=== PATIENT | female | born 1930 | race Caucasian/White ===

== ENCOUNTER 2016-06-28 13:58 | Emergency (ER) | payer OTHER ==
[~2016-06-28] VITALS: Ht 154.9 cm; Wt 42.0 kg
[~2016-06-28 13:58] MED LIST: ACET-1311 PO; RISP1SOL4 IM
[2016-06-28 14:11] VITALS: TEMP 36.5; Ht 154.9 cm; Wt 42.0 kg
[2016-06-28] MEDS ORDERED: CITA10TA4 PO (14:19)
[2016-06-28] MEDS ORDERED: [UNRECOGNIZED DRUG - CODE] IM (14:20)
[2016-06-28] MEDS ORDERED: GABA-112 PO (14:20)
--- NOTE | 2016-06-28 15:45 | EMERGENCY ROOM VISIT NOTE ---
History Report prepared by Ignacia: Dara Cochran Under the Supervision of: Dr. Billy Begum D.O. 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 Today, she told a member of [facility] staff that she was supposed to get 45 dollars from former Governor [employer] today which prompted the staff member to refer the patient to the ED. She also states that Sonali won [employer] which is untrue. Patient is adamant that she does not want any blood work. She states that she is not dehydrated, anemic, hypoglycemic. She states that because she ate a banana, her potassium cannot be low. The history obtained from the patient is limited due to her condition. 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 A total of 10 systems reviewed and were otherwise negative. Past Medical & Surgical Medical Problems: (1) Paranoid schizophrenia Family History Hypertension Social History Smoking Status: Unknown if Ever Smoked Marital Status: Housing Status: [facility] Occupation Status: retired Current/Historical Medications Scheduled Citalopram Hydrobromide (Citalopram Hydrobromide), 5 MG PO DAILY Gabapentin (Neurontin), 100 MG PO TID Risperidone (Risperdal Consta), 25 MG IM [id number] Allergies Coded Allergies: Hydrochlorothiazide (Verified Allergy, Unknown, UNKNOWN, 06/28/16) Penicillins (Verified Allergy, Unknown, UNKNOWN, 06/28/16) Physical Exam Vital Signs Date Time Temp Pulse Resp B/P Pulse Ox O2 Delivery O2 Flow Rate FiO2 06/28/16 15:54 92 18 155/96 94 Room Air 06/28/16 14:11 36.5 91 18 197/121 94 Room Air Physical Exam CONSTITUTIONAL/VITAL SIGNS: Reviewed / noted above. GENERAL: Non-toxic in appearance. INTEGUMENTARY: Warm, dry, and [place]. HEAD: Normocephalic. EYES: without scleral icterus or trauma. ENT/OROPHARYNX: clear and moist. LYMPHADENOPATHY/NECK: Is supple without lymphadenopathy or meningismus. RESPIRATORY: Lungs clear and equal. CARDIOVASCULAR: Regular rate and rhythm. GI/ABDOMEN: Soft and nontender. No organomegaly or pulsatile mass. No rebound or guarding. Normal bowel sounds. EXTREMITIES: Warm and well perfused. BACK: No CVA tenderness. NEUROLOGICAL: Intact without focal deficits. PSYCHIATRIC: Not suicidal or homicidal. Refusing blood work. MUSCULOSKELETAL: Normally developed with good muscle tone. Medical Decision & Procedures Laboratory Results 06/28/16 15:43 Red Blood Count 5.05, Mean Corpuscular Volume 64.4, Mean Corpuscular Hemoglobin 18.6, Mean Corpuscular Hemoglobin Concent 28.9, Mean Platelet Volume 9.3, Neutrophils (%) (Auto) 73.3, Lymphocytes (%) (Auto) 13.5, Monocytes (%) (Auto) 9.9, Eosinophils (%) (Auto) 2.9, Basophils (%) (Auto) 0.2, Neutrophils # (Auto) 6.74, Lymphocytes # (Auto) 1.24, Monocytes # (Auto) 0.91, Eosinophils # (Auto) 0.27, Basophils # (Auto) 0.02 06/28/16 15:43 Test 06/28/16 15:43 White Blood Count 9.20 K/uL (4.8-10.8) Red Blood Count 5.05 M/uL (4.2-5.4) Hemoglobin 9.4 g/dL (12.0-16.0) Hematocrit 32.5 % (37-47) Mean Corpuscular Volume 64.4 fL (80-100) Mean Corpuscular Hemoglobin 18.6 pg (25-34) Mean Corpuscular Hemoglobin Concent 28.9 g/dl (32-36) Platelet Count 563 K/uL (130-400) Mean Platelet Volume 9.3 fL (7.4-10.4) Neutrophils (%) (Auto) 73.3 % Lymphocytes (%) (Auto) 13.5 % Monocytes (%) (Auto) 9.9 % Eosinophils (%) (Auto) 2.9 % Basophils (%) (Auto) 0.2 % Neutrophils # (Auto) 6.74 K/uL (1.4-6.5) Lymphocytes # (Auto) 1.24 K/uL (1.2-3.4) Monocytes # (Auto) 0.91 K/uL (0.11-0.59) Eosinophils # (Auto) 0.27 K/uL (0-0.5) Basophils # (Auto) 0.02 K/uL (0-0.2) RDW Standard Deviation 46.5 fL (36.4-46.3) RDW Coefficient of Variation 20.1 % (11.5-14.5) Immature Granulocyte % (Auto) 0.2 % Immature Granulocyte # (Auto) 0.02 K/uL (0.00-0.02) Polychromasia 1+ Hypochromasia PRESENT Anisocytosis PRESENT Microcytosis PRESENT Ovalocytes 1+ Anion Gap 10.0 mmol/L (3-11) Est Creatinine Clear Calc Drug Dose 42.0 ml/min Estimated GFR () 93.8 Estimated GFR (Non- 81.0 BUN/Creatinine Ratio 22.9 (10-20) Calcium Level 9.1 mg/dl (8.5-10.1) Total Bilirubin 0.2 mg/dl (0.2-1) Aspartate Amino Transf (AST/SGOT) 9 U/L (15-37) Alanine Aminotransferase (ALT/SGPT) 10 U/L (12-78) Alkaline Phosphatase 107 U/L (45-117) Total Protein 7.2 gm/dl (6.4-8.2) Albumin 2.7 gm/dl (3.4-5.0) Globulin 4.5 gm/dl (2.5-4.0) Albumin/Globulin Ratio 0.6 (0.9-2) Thyroid Stimulating Hormone (TSH) 0.471 uIu/ml (0.300-4.500) Salicylates Level < 1.7 mg/dl (2.8-20) Acetaminophen Level < 2 ug/ml (10-30) Ethyl Alcohol mg/dL < 3.0 mg/dl (0-3) Laboratory results as stated above per my review. ED Course 1511: Previous medical records were reviewed. The patient was evaluated in room A6. A complete history and physical examination was performed. 1723: I reevaluated the patient. She is resting comfortably. I discussed the results and treatment plan with her. She expressed agreement and verbalized understanding. She will be discharged home. Medical Decision differential includes toxic ingestions, self-mutilation, suicidal ideation, suicide attempt, depression. This is a 86-year-old female who presents to the ED with a chief complaint of 302 evaluation. The patient was sent from the [facility]. She came in with a 302 petition stating that she has been aggressive towards other people and is not taking her medication. She has not been taking her blood pressure medication and thus her blood pressure on initial evaluation is elevated. The patient is awake, alert and oriented on my evaluation. She refuses to have her blood work done. She states that she [facility]. They will not reportedly take her back because she is not taking her psychiatric medications or her other medications. She denies being suicidal or homicidal. She has no specific complaints. The patient's blood work reveals some mild chronic anemia with a hemoglobin of 9.4. Complete metabolic panel was unremarkable. Thyroid function is normal. Alcohol is negative. Tylenol & salicylates are negative. After evaluation the patient, the patient does not appear to be suicidal or homicidal. She is of sound mind. She initially refused blood work but later agreed to this. She answers all questions appropriately. She may be refusing to take her medication although I do not feel this is related to an acute psychiatric issue. Impression Primary Impression: Noncompliance with medication regimen Scribe Attestation The scribe's documentation has been prepared under my direction and personally reviewed by me in its entirety. I confirm that the note above accurately reflects all work, treatment, procedures, and medical decision making performed by me. Departure Information Dispostion Home / Self-Care Referrals Wilton Villanueva .MD (PCP) Forms HOME CARE DOCUMENTATION FORM, IMPORTANT VISIT INFORMATION Patient Instructions My [facility] Additional Instructions Follow-up with your doctors. Return for any concerns.
[2016-06-28 16:24] LABS: BUN/CREATININE RATIO 22.9 (10-20); CALCIUM 9.1 mg/dl (8.5-10.1); CREATININE 0.65 mg/dl (0.60-1.20); POTASSIUM 3.7 mmol/L (3.5-5.1)
[2016-06-28 16:25] LABS: ACETAMINOPHEN < 2 ug/ml (10-30)
[2016-06-28 16:34] LABS: ALB/GLOB RATIO 0.6 (0.9-2); THYROID STIMULATING HORMONE 0.471 uIu/ml (0.300-4.500)
[2016-06-28 16:49] LABS: ANISOCYTOSIS PRESENT; BASO % 0.2 %; BASO ABS # 0.02 K/uL (0-0.2); COMPLETE YES; EOS % 2.9 %; HEMATOCRIT 32.5 % (37-47); HYPOCHROMIA PRESENT; IG% 0.2 %; LYMPH % 13.5 %; LYMPH ABS # 1.24 K/uL (1.2-3.4); MEAN CELL VOLUME 64.4 fL (80-100); MEAN CORPUSCULAR HEMOGLOBIN 18.6 pg (25-34); MEAN CORPUSCULAR HGB CONC 28.9 g/dl (32-36); MEAN PLATELET VOLUME 9.3 fL (7.4-10.4); MICROCYTOSIS PRESENT; MONO % 9.9 %; NEUT % 73.3 %; OVALOCYTES 1+; PLATELET COUNT 563 K/uL (130-400); POLYCHROMASIA 1+; RED BLOOD COUNT 5.05 M/uL (4.2-5.4)
[2016-06-28 17:35] VITALS: BP 143/89; PULSE 107; O2SAT 94
== END 2016-06-28 17:35 | disposition home or self-care (01) ==
LOC: EDBD 13:58 → C.EDA 13:59
DX: Z00.8 Encounter for other general examination (principal); Z91.14 Patient's other noncompliance with medication regimen; F20.0 Paranoid schizophrenia; Z79.899 Other long term (current) drug therapy; Z88.0 Allergy status to penicillin; Z88.8 Allergy status to other drugs, medicaments and biological substances; Z82.49 Family history of ischemic heart disease and other diseases of the circulatory system

== ENCOUNTER 2016-08-03 18:07 | Emergency (ER) | payer OTHER ==
[~2016-08-03 18:07] MED LIST changes: -ACET-1311 PO; +CITA10TA4 PO; +GABA-112 PO; -RISP1SOL4 IM; +[UNRECOGNIZED DRUG - CODE] IM
[2016-08-03 18:12] VITALS: TEMP 36.6; Ht 162.6 cm
--- NOTE | 2016-08-03 18:37 | EMERGENCY ROOM VISIT NOTE ---
History Report prepared by Ignacia: Christopher Dobbs Under the Supervision of: Dr. Adebayo Cruz M.D. First contact with patient: 18:22 Chief Complaint: MENTAL HEALTH EVALUATION Stated Complaint: NOT COOPERATIVE W/STAFF History of Present Illness The patient is an 86 year old female who presents to the Emergency Room from [facility] with complaints of persistent combativeness that started prior to arrival today. Per the nursing staff, the patient was 302'd because the patient is refusing medications, refusing personal hygiene, and is being combative. The patient was throwing things at staff and yelling at residents. She is congested and has a bad cough. Per the patient, she says she fell a few weeks ago and she hurt herself, but she did not hit her head. She says she has not been taking her medications because they make her feel terrible. She states that she has not been eating her food because the food "isn't any good". The patient denies any suicidal or homicidal ideations. She also denies a headache or fever. She does note that she has heartburn currently. The patient has not been using breathing treatments. Source of History: patient, long-term notes, nursing staff Onset: Prior to arrival today Position: other (global - combativeness) Quality: other (throwing things at staff, refusing medications) Timing: other (persistent) Associated Symptoms: + cough, No fevers, No headache Note: Associated symptoms: Congested. Heartburn. Denies suicidal or homicidal ideations. Review of Systems See HPI for pertinent positives & negatives. A total of 10 systems reviewed and were otherwise negative. Past Medical & Surgical Medical Problems: (1) Paranoid schizophrenia Old medical records were reviewed. Nurse's notes were reviewed and I agree with. COPD Family History Hypertension Social History Smoking Status: Former Smoker Marital Status: Housing Status: long-term Occupation Status: retired Current/Historical Medications Scheduled Citalopram Hydrobromide (Citalopram Hydrobromide), 5 MG PO DAILY Ferrous Sulfate (Kp Ferrous Sulfate), 325 MG PO DAILY Gabapentin (Neurontin), 100 MG PO Q12 Polyethylene Glycol 3350 (Miralax), 17 GM PO DAILY Risperidone (Risperdal Consta), 25 MG IM [id number] Allergies Coded Allergies: Hydrochlorothiazide (Verified Allergy, Unknown, UNKNOWN, 08/03/16) Penicillins (Verified Allergy, Unknown, UNKNOWN, 08/03/16) Physical Exam Vital Signs Date Time Temp Pulse Resp B/P Pulse Ox O2 Delivery O2 Flow Rate FiO2 08/03/16 21:00 104 18 144/94 94 Room Air 08/03/16 18:12 36.6 108 22 169/108 95 Room Air Physical Exam General: Well developed well nourished non ill appearing older female in no acute distress who is alert and oriented x3. Answers most questions appropriately but others very loudly. HEENT: Normal cephalic atraumatic. Pupils are equal round and reactive to light. Extraocular movements are intact. Oropharynx is pink with moist mucous membranes. No swelling of the mouth lips or tongue. Neck: Supple with a midline trachea. No meningeal signs or stiffness, no JVD or bruits. No Stridor. Chest: Clear to auscultation bilaterally. No wheezes or rhonchi. No increased work of breathing. Heart: regular rate and rhythm. Abdomen: Soft nontender, nondistended without rebound guarding or rigidity. Extremities: No cyanosis clubbing or edema. No calf tenderness or assymetry Spine/Back. Non tender to palpation. No CVA tenderness Skin: Good turgor without rashes. Neurologic exam: Cranial nerves two through 12 are intact. Motor and sensation are intact and symmetrical throughout. Psych: Intermittently yelling but normal thought process. Denies suicidal or homicidal ideations. Medical Decision & Procedures ER Provider Diagnostic Interpretation: X-ray results as stated below per interpretation by me and the radiologist: CHEST ONE VIEW PORTABLE CLINICAL HISTORY: Chest pain. COMPARISON STUDY: Chest radiograph June 08, 2015. FINDINGS: This exam was compromised due to difficulty with positioning. The patient is rotated with kyphotic positioning. There is no evidence of pulmonary edema. There is no lobar consolidation. Mild to moderate cardiomegaly is noted. No pneumothorax or pleural effusion is identified. IMPRESSION: Study compromised due to difficulty positioning. No significant change in appearance the chest. Stable cardiomegaly without evidence of pulmonary edema. Electronically signed by: Malik Hernandez M.D. 08/03/2016 6:53 PM Dictated Date/Time: 08/03/2016 6:52 PM Laboratory Results 08/03/16 19:36 Red Blood Count 5.20, Mean Corpuscular Volume 63.3, Mean Corpuscular Hemoglobin 18.3, Mean Corpuscular Hemoglobin Concent 28.9, Mean Platelet Volume 9.3, Neutrophils (%) (Auto) 82.4, Lymphocytes (%) (Auto) 5.1, Monocytes (%) (Auto) 11.6, Eosinophils (%) (Auto) 0.4, Basophils (%) (Auto) 0.1, Neutrophils # (Auto ) 10.79, Lymphocytes # (Auto) 0.67, Monocytes # (Auto) 1.52, Eosinophils # (Auto ) 0.05, Basophils # (Auto) 0.01 08/03/16 19:36 Test 08/03/16 19:36 White Blood Count 13.09 K/uL (4.8-10.8) Red Blood Count 5.20 M/uL (4.2-5.4) Hemoglobin 9.5 g/dL (12.0-16.0) Hematocrit 32.9 % (37-47) Mean Corpuscular Volume 63.3 fL (80-100) Mean Corpuscular Hemoglobin 18.3 pg (25-34) Mean Corpuscular Hemoglobin Concent 28.9 g/dl (32-36) Platelet Count 479 K/uL (130-400) Mean Platelet Volume 9.3 fL (7.4-10.4) Neutrophils (%) (Auto) 82.4 % Lymphocytes (%) (Auto) 5.1 % Monocytes (%) (Auto) 11.6 % Eosinophils (%) (Auto) 0.4 % Basophils (%) (Auto) 0.1 % Neutrophils # (Auto) 10.79 K/uL (1.4-6.5) Lymphocytes # (Auto) 0.67 K/uL (1.2-3.4) Monocytes # (Auto) 1.52 K/uL (0.11-0.59) Eosinophils # (Auto) 0.05 K/uL (0-0.5) Basophils # (Auto) 0.01 K/uL (0-0.2) RDW Standard Deviation 46.8 fL (36.4-46.3) RDW Coefficient of Variation 20.8 % (11.5-14.5) Immature Granulocyte % (Auto) 0.4 % Immature Granulocyte # (Auto) 0.05 K/uL (0.00-0.02) Polychromasia 1+ Hypochromasia PRESENT Poikilocytosis PRESENT Schistocytes OCCASIONAL Anion Gap 7.0 mmol/L (3-11) Estimated GFR () 96.9 Estimated GFR (Non- 83.6 BUN/Creatinine Ratio 24.4 (10-20) Calcium Level 8.1 mg/dl (8.5-10.1) Total Bilirubin 0.7 mg/dl (0.2-1) Direct Bilirubin 0.2 mg/dl (0-0.2) Aspartate Amino Transf (AST/SGOT) 13 U/L (15-37) Alanine Aminotransferase (ALT/SGPT) 10 U/L (12-78) Alkaline Phosphatase 161 U/L (45-117) Troponin I 0.016 ng/ml (0-0.045) Total Protein 6.8 gm/dl (6.4-8.2) Albumin 2.0 gm/dl (3.4-5.0) Lipase 77 U/L (73-393) Ethyl Alcohol mg/dL < 3.0 mg/dl (0-3) Laboratory studies as stated above per my review. ECG Indication: other (mental health evaluation) Rate (beats per minute): 87 Rhythm: normal sinus Findings: no acute ischemic change, other (poor baseline due to patient tremor , no prolonged QT) Change: no significant change (compared to Jun 08 2016) ED Course 1822: Past medical records reviewed. The patient was evaluated in room A8, and a complete history and physical examination were performed. 1911: I talked to the psychiatric binder caser, and she will come see the patient. 2012: I talked to the psychiatric binder caser, and she thinks that the patient is okay to go back to [facility] if the patient eats. The patient does not meet admission criteria. The patient denies any suicidal ideations, and she seems with it. 2029: Upon reevaluation, the patient is resting in bed and she ate soup. She wants to go home. I discussed the results and treatment plan with her. She verbalized agreement of the treatment plan. The patient will be discharge back to [facility]. Medical Decision Differentials include, but are not limited to; electrolyte or metabolic abnormality, cardiac disease, depression, psychiatric illness. This patient comes in as described above she was sent over under 302 petition from the long-term . they've been concerned about her behavior that has been combative at times .she's not been eating or taking her medication. She is very cooperative with me although intermittently does yell. She seems to answer questions appropriately. She fell a couple weeks ago but none recently she did not hit her head .she's had some cough and congestion at times. Multiple blood testing was obtained for medical clearance also did EKG and chest x-ray. She was reassessed frequently. She tells me that she has not been eating because she does not like the food. We fed her here and she ate soup and looks great. She is alert oriented 3 and answers questions appropriately. She is not suicidal or homicidal. I did a chest x-ray and there are no acute findings. EKG does not suggest acute cardiac disease. She has no significant electrolyte or metabolic abnormalities. Her troponin is normal does not suggest a cardiac event. I did have Christi our ER psychiatric binder caser also evaluate her and she does not feel she meets inpatient criteria at this point. She is going back to a safe setting in the long-term. The 302 petition is denied as she does not meet criteria at this point. She will be sent back to the long-term and should have close follow-up with her doctor within the next couple of days and return if any new problems or concerns. Impression Primary Impression: Schizoaffective disorder, chronic condition Additional Impression: Mental health problem Scribe Attestation The scribe's documentation has been prepared under my direction and personally reviewed by me in its entirety. I confirm that the note above accurately reflects all work, treatment, procedures, and medical decision making performed by me. Departure Information Dispostion Home / Self-Care Referrals Wilton Villanueva MD (PCP) Patient Instructions My [facility] Health Problem Qualifiers
--- NOTE | 2016-08-03 18:55 | DIAGNOSTIC IMAGING REPORT ---
CHEST ONE VIEW PORTABLE CLINICAL HISTORY: Chest pain. COMPARISON STUDY: Chest radiograph June 08, 2015. FINDINGS: This exam was compromised due to difficulty with positioning. The patient is rotated with kyphotic positioning. There is no evidence of pulmonary edema. There is no lobar consolidation. Mild to moderate cardiomegaly is noted. No pneumothorax or pleural effusion is identified. IMPRESSION: Study compromised due to difficulty positioning. No significant change in appearance the chest. Stable cardiomegaly without evidence of pulmonary edema. Electronically signed by: Malik Hernandez M.D. 08/03/2016 6:53 PM Dictated Date/Time: 08/03/2016 6:52 PM
[2016-08-03] MEDS ORDERED: POLY335019 PO (19:10)
[2016-08-03] MEDS ORDERED: FERR1TAB13 PO (19:10)
[2016-08-03 20:10] LABS: ALT/SGPT 10 U/L (12-78); AST/SGOT 13 U/L (15-37); BLOOD UREA NITROGEN 14 mg/dl (7-18); BUN/CREATININE RATIO 24.4 (10-20); CALCIUM 8.1 mg/dl (8.5-10.1); CARBON DIOXIDE 27 mmol/L (21-32); CHLORIDE 104 mmol/L (98-107); CREATININE 0.59 mg/dl (0.60-1.20); GLUCOSE 118 mg/dl (70-99); POTASSIUM 3.5 mmol/L (3.5-5.1); SODIUM 138 mmol/L (136-145)
[2016-08-03 20:13] LABS: ALKALINE PHOSPHATASE 161 U/L (45-117)
[2016-08-03 20:16] LABS: HEMATOCRIT 32.9 % (37-47); MEAN CELL VOLUME 63.3 fL (80-100); MEAN CORPUSCULAR HEMOGLOBIN 18.3 pg (25-34); MEAN CORPUSCULAR HGB CONC 28.9 g/dl (32-36); MEAN PLATELET VOLUME 9.3 fL (7.4-10.4); PLATELET COUNT 479 K/uL (130-400); WHITE BLOOD COUNT 13.09 K/uL (4.8-10.8)
[2016-08-03 20:19] LABS: BASO % 0.1 %; BASO ABS # 0.01 K/uL (0-0.2); COMPLETE YES; EOS % 0.4 %; HYPOCHROMIA PRESENT; IG% 0.4 %; LYMPH % 5.1 %; LYMPH ABS # 0.67 K/uL (1.2-3.4); MONO % 11.6 %; NEUT % 82.4 %; POIKILOCYTOSIS PRESENT; POLYCHROMASIA 1+; SCHISTOCYTES OCCASIONAL
[2016-08-03 22:01] VITALS: BP 127/86; PULSE 102; O2SAT 92
[2016-11-15] MEDS ORDERED: OLOP0.1S3 OPB (13:24)
== END 2016-08-03 22:01 | disposition home or self-care (01) ==
LOC: C.EDA 18:07 → EDBD 18:07 → C.EDA 22:01
DX: F25.9 Schizoaffective disorder, unspecified (principal); F20.0 Paranoid schizophrenia; Z87.891 Personal history of nicotine dependence

== ENCOUNTER 2016-11-15 11:44 | Inpatient (IN) | payer OTHER ==
[~2016-11-15] VITALS: Ht 162.6 cm; Wt 53.2 kg
[~2016-11-15 11:44] MED LIST changes: +FERR1TAB13 PO; +POLY335019 PO
--- NOTE | 2016-11-15 12:29 | EMERGENCY ROOM VISIT NOTE ---
History Report prepared by Ignacia: Ray Garcia Under the Supervision of: Dr. Andreas Gao M.D. First contact with patient: 12:10 Chief Complaint: MENTAL HEALTH EVALUATION Stated Complaint: REFUSING CARE/ HEARTHSIDE History of Present Illness The patient is an 86 year old female who presents to the Emergency Room for a mental health evaluation. The patient states that she has been refusing to take her medication. She reports that she is not in any pain, and her hand is always swollen. The patient notes that she is from [place] and would like to go to [place]. Records states that she was here in July and has as history of schizophrenia. HPI limited secondary to the patient refusing to answer questions. Source of History: patient, nursing staff History Limited By: poor cooperation Review of Systems ROS limited secondary to the patient refusing to answer questions. Past Medical & Surgical Medical Problems: (1) Change in mental status (2) Paranoid schizophrenia Family History Hypertension Social History Smoking Status: Current Every Day Smoker Marital Status: Housing Status: half-way Occupation Status: retired Current/Historical Medications Scheduled Citalopram Hydrobromide (Citalopram Hydrobromide), 5 MG PO DAILY Ferrous Sulfate (Kp Ferrous Sulfate), 325 MG PO DAILY Gabapentin (Neurontin), 100 MG PO Q12 Polyethylene Glycol 3350 (Miralax), 17 GM PO DAILY Risperidone (Risperdal Consta), 50 MG IM [id number] Scheduled PRN Bisacodyl (Bisacodyl), 10 MG [place] DAILY PRN for if no bm for 4 days Lorazepam (Lorazepam Intensol), 0.25 MG PO BID PRN for Agitation Magnesium Hydroxide (Milk Of Magnesia), 30 ML PO prn PRN for no bm for 3 days Olopatadine Hcl (Patanol 0.1% Oph), 1 DROP OPB BID PRN for Itching Miscellaneous Medications Risperidone (Risperdal Consta), 50 Allergies Coded Allergies: Hydrochlorothiazide (Verified Allergy, Unknown, UNKNOWN, 11/15/16) Penicillins (Verified Allergy, Unknown, UNKNOWN, 11/15/16) Physical Exam Vital Signs Date Time Temp Pulse Resp B/P (MAP) Pulse Ox O2 Delivery O2 Flow Rate FiO2 11/15/16 18:29 113 93 11/15/16 18:29 113 93 11/15/16 18:24 113 96 11/15/16 18:24 113 96 11/15/16 18:19 121 92 17 18:19 121 92 17 18:16 116/65 17 18:16 116/65 17 18:14 110 92 17 18:14 110 92 17 18:09 114 93 17 18:09 114 93 17 18:04 102 108/72 95 11/15/16 18:04 102 108/72 95 17 18:01 88/81 11/15/16 18:01 88/81 11/15/16 17:59 111 91 11/15/16 17:59 111 91 11/15/16 17:54 111 90 11/15/16 17:54 111 90 11/15/16 17:49 113 88 11/15/16 17:49 113 88 11/15/16 17:46 140/66 11/15/16 17:46 140/66 11/15/16 17:45 108 22 140/66 95 Room Air 11/15/16 17:44 117 90 11/15/16 17:44 117 90 11/15/16 17:39 149 97 11/15/16 17:39 149 97 11/15/16 17:34 185 96 11/15/16 17:34 185 96 11/15/16 17:33 128 20 132/81 94 Room Air 11/15/16 17:32 132/81 11/15/16 17:32 98 Room Air 11/15/16 17:32 132/81 11/15/16 17:29 109 98 17 17:29 109 98 11/15/16 17:24 130 97 17 17:24 130 97 17 17:19 118 95 17 17:19 118 95 17 17:16 139/93 17 17:16 139/93 17 17:14 125 11/15/16 17:14 125 17 17:14 125 17 17:09 127 17 17:09 127 17 17:09 127 11/15/16 17:04 126 11/15/16 17:04 126 11/15/16 17:04 126 11/15/16 16:59 128 11/15/16 16:59 128 11/15/16 16:59 128 11/15/16 16:54 127 11/15/16 16:54 127 11/15/16 16:54 127 11/15/16 16:49 134 11/15/16 16:49 134 11/15/16 16:49 134 11/15/16 16:46 123/89 11/15/16 16:46 123/89 11/15/16 16:46 123/89 11/15/16 16:34 129 11/15/16 16:34 129 11/15/16 16:34 129 11/15/16 16:29 138 11/15/16 16:29 138 11/15/16 16:29 138 11/15/16 16:27 56/42 11/15/16 16:27 56/42 11/15/16 16:27 56/42 11/15/16 16:20 121 11/15/16 16:19 127 25 11/15/16 16:14 117 29 11/15/16 16:12 119 17 71/48 93 Room Air 11/15/16 16:11 71/48 11/15/16 16:09 90 22 81 11/15/16 16:00 128 20 78/46 93 Room Air 11/15/16 15:59 132 22 11/15/16 15:57 78/46 11/15/16 15:56 72/55 11/15/16 15:54 128 11/15/16 15:39 122 16 11/15/16 15:34 130 21 11/15/16 15:29 132 13 11/15/16 15:24 126 14 11/15/16 15:21 90/57 11/15/16 15:04 100 16 11/15/16 14:59 100 17 11/15/16 14:54 105 16 11/15/16 14:49 95 18 11/15/16 14:44 107 18 11/15/16 14:39 123 18 92 11/15/16 14:34 114 24 89 11/15/16 14:29 111 22 92 11/15/16 14:24 114 19 88 11/15/16 14:19 106 20 92 11/15/16 14:14 67 27 80 11/15/16 14:09 101 21 11/15/16 14:04 118 26 82 11/15/16 13:59 101 22 91 11/15/16 13:54 113 23 11/15/16 13:49 91 20 90 11/15/16 13:44 126 19 84 11/15/16 13:39 126 22 90 11/15/16 13:34 91 23 93 11/15/16 13:29 114 24 85 11/15/16 13:24 115 17 89 11/15/16 13:19 109 23 91 11/15/16 13:14 100 17 90 11/15/16 13:09 94 27 94 11/15/16 13:04 116 23 86 11/15/16 12:59 111 18 85 11/15/16 12:54 130 24 81 11/15/16 12:49 87 27 84 11/15/16 12:44 109 17 93 11/15/16 12:39 95 25 94 11/15/16 12:34 99 24 92 11/15/16 12:29 78 20 95 11/15/16 12:24 96 21 93 11/15/16 12:19 97 15 94 11/15/16 12:14 91 22 88 11/15/16 12:09 96 16 93 11/15/16 12:08 96 11/15/16 12:04 94 22 11/15/16 11:59 36.5 95 22 130/94 Room Air 11/15/16 11:55 130/94 Physical Exam GENERAL: Patient is elderly appearing, angry yet agreeable when needed, and in no acute distress. HEENT: No acute trauma, normocephalic atraumatic, mucous membranes moist, no nasal congestion, no scleral icterus. NECK: No stridor, no adenopathy, no meningismus, trachea is midline. LUNGS: No dyspnea. Clear to auscultation and equal bilaterally. No wheeze, no rhonchi. HEART: Regular rate and rhythm. No murmurs, rubs, gallops appreciated. ABDOMEN: Soft, nontender, bowel sounds positive, no masses appreciated, no peritonitis. BACK: No midline tenderness, no CVA tenderness EXTREMITIES: Normal motion all extremities, no cyanosis. Edema to the feet and hand, chronic. NEUROLOGIC: Alert and oriented, no acute motor or sensory deficits, no focal weakness, cranial nerves grossly intact. SKIN: No rash, no jaundice, no diaphoresis. PSYCH: Sometimes answers questions, other times she will respond with another question. Medical Decision & Procedures ER Provider Diagnostic Interpretation: Radiology results and stated below per my review and radiologist interpretation: HEAD WITHOUT CONTRAST (CT) CT DOSE: 537.48 mGy.cm HISTORY: Mental status change mental health change TECHNIQUE: Multiaxial CT images of the head were performed without the use of intravenous contrast. A dose lowering technique was utilized adhering to the principles of ALARA. Comparison: 06/08/2015 Findings: The paranasal sinuses and mastoid air cells are clear. The calvarium and skull base are intact. The ventricles and sulci are within normal limits. There is no mass, hematoma, midline shift, or acute infarct. Age-related atrophy and chronic small vessel change. Impression: Chronic and age-related change. No acute process. The above report was generated using voice recognition software. It may contain grammatical, syntax or spelling errors. Electronically signed by: Eddie Harrell M.D. 11/15/2016 3:18 PM Dictated Date/Time: 11/15/2016 3:16 PM CHEST ONE VIEW PORTABLE CLINICAL HISTORY: 86 years-old Female presenting with agitation, refusing care. TECHNIQUE: Portable upright AP view of the chest was obtained. COMPARISON: 08/03/2016. 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 Atherosclerosis of the aortic arch. Cardiac silhouette normal. Minimal vague groundglass opacity at the right lung base with minimal blunting of the right costophrenic angle. No large effusion or pneumothorax. Osseous structures and upper abdomen normal. IMPRESSION: 1. Minimal right basilar opacity, possibly atelectasis although aspiration cannot be excluded. This may be accompanied by a trace right pleural effusion. 2. 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 Electronically signed by: Panchito Ruano M.D. 11/15/2016 2:17 PM Dictated Date/Time: 11/15/2016 2:15 PM Laboratory Results Test 11/15/16 11:34 11/15/16 12:32 11/15/16 12:50 11/15/16 17:04 Urine Color DK YELLOW Urine Appearance CLEAR (CLEAR) Urine pH 5.5 (4.5-7.5) Urine Specific [place] 1.028 (1.000-1.030) Urine Protein NEG (NEG) Urine Glucose (UA) NEG (NEG) Urine Ketones NEG (NEG) Urine Occult Blood NEG (NEG) Urine Nitrite NEG (NEG) Urine Bilirubin NEG (NEG) Urine Urobilinogen NEG (NEG) Urine Leukocyte Esterase NEG (NEG) Urine WBC (Auto) 1-5 /hpf (0-5) Urine RBC (Auto) 0-4 /hpf (0-4) Urine Hyaline Casts (Auto) 1-5 /lpf (0-5) Urine Epithelial Cells (Auto) 20-30 /lpf (0-5) Urine Bacteria (Auto) NEG (NEG) Urine Renal Epithelial Cells /lpf (0-5) Urine Opiates Screen NEG (NEG) Urine Methadone, Qualitative NEG (NEG) Urine Barbiturates NEG (NEG) Urine Phencyclidine (PCP) Level NEG (NEG) Ur Amphetamine/Methamphetamine NEG (NEG) MDMA (Ecstasy) Screen NEG (NEG) Urine Benzodiazepines Screen NEG (NEG) Urine Cocaine Metabolite NEG (NEG) Urine Marijuana (THC) NEG (NEG) Nucleated RBC Absolute Count (auto) 0.10 K/uL (0-0) Nucleated Red Blood Cells % 0.9 % Poikilocytosis PRESENT Salicylates Level < 1.7 mg/dl (2.8-20) Acetaminophen Level 7 ug/ml (10-30) Ethyl Alcohol mg/dL < 3.0 mg/dl (0-3) Total Creatine Kinase 39 U/L (26-192) Troponin I 0.031 ng/ml (0-0.045) Lipase 50 U/L (73-393) Procalcitonin 0.30 ng/ml (0-0.5) Thyroid Stimulating Hormone (TSH) 0.736 uIu/ml (0.300-4.500) Bedside Lactic Acid Venous 6.04 mmol/L (0.90-1.70) Laboratory results as reviewed by me. Medications Administered Medications (Trade) Dose Ordered Sig/Elijah Route Start Time Stop Time Status Last Admin Dose Admin Sodium Chloride 1,000 ml @ 999 mls/hr Q1H1M STAT IV 11/15/16 16:12 11/15/16 17:12 DC 11/15/16 17:12 999 MLS/HR Haloperidol Lactate (Haldol Inj) 2.5 mg NOW STAT IV 11/15/16 16:27 11/15/16 16:28 DC 11/15/16 17:12 2.5 MG Lorazepam (Ativan Inj) 0.25 mg NOW STAT IV 11/15/16 16:41 11/15/16 16:42 DC 11/15/16 17:12 0.25 MG Sodium Chloride 1,000 ml @ 999 mls/hr Q1H1M STAT IV 11/15/16 17:09 11/15/16 18:09 DC 11/15/16 17:19 999 MLS/HR Cefepime HCl 1000 mg/Dextrose 111.3 ml @ 200 mls/hr NOW STAT IV 11/15/16 17:09 11/15/16 17:42 DC 11/15/16 17:54 200 MLS/HR Vancomycin HCl 1250 mg/Sodium Chloride 525 ml @ 200 mls/hr ONE STAT IV 11/15/16 17:09 11/15/16 19:46 DC 11/15/16 17:54 200 MLS/HR ED Course 1216: The patient was evaluated in room C12B. A complete history and physical exam was performed. 1611: I reevaluated the patient, and she is now hypotensive and tachycardic. 1612: Ordered Sodium Chloride 1000 ml @ 999 mls/hr IV Medical Decision Differential: Mood Disorder, Overdose, Infectious, Electrolyte Abnormality, Cardiac, Hepatic, Endocrine, Toxicologic, Neurologic, amongst other pathologies entertained. 86 yr old demented elderly patient with long psychiatric history has been refusing care at half-way and reportedly aggressive with staff. Medically clear other than some low albumin which I do not feel requires inpatient medical treatment. CT head negative. CXR clear. No evidence of infection. She apparently is danger to self at half-way and thus we will attempt mental health placement. She is eating/drinking here and in no distress other than periodically screaming at staff. She was moved back to mental health area and shortly thereafter noted to have hypotension and developed significant tachycardia. Patient states she is fine, however she is quite agitated that we are doing more to her. Given NSS bolus. Does not appear to be septic however blood cultures and Lactic acid obtained. She is actively hitting herself and getting very agitated, despite her hypotension. We rechecked BP multiple time and it appears a real number. Given small dose IV Haldol (QTC 446 on most recent EKG) for agitation. After 1 L NSS, small dose haldol/ativan. Patient mildly calmed down and BP is now back to 120s. HR still in 120s. EKG poor baseline though difficult to get better as she moves quite a bit during it. EKG is with what appears to be sinus tach with PACs though can't completely rule out this being afib which would be new. One calm we were able to obtain Lactic acid. This was elevated. Difficult to determine cause however must treat empirically as infectious until proven otherwise thus given empiric abx and further fluid resus ordered. Of note, while haldol and ativan were used, these are similar medications as her usual and were used not to restrain patient but rather to calm her down. They were also given under close observation and separate of each other. She will now need to be admitted for further evaluation and treatment. Medication Reconcilliation Current Medication List: was personally reviewed by me Blood Pressure Screening Patient's blood pressure: Low blood pressure Initially mildly elevated, later significantly hypotensive. Will be monitored by hospitalist. Impression Primary Impression: Failure to thrive Additional Impressions: Refusal of care by patient Hypotension Tachycardia Agitation Critical Care I have personally spent greater than 45 minutes of critical care time in the direct management of this patient. This was a life/limb threatening event. This includes time spent evaluating patient, direct bedside care, chart review, placing orders, interpretation of diagnostic studies, discussion with consultants, patient, and family members, as well as other required patient management activities. This 45 minutes is in excess of all separately billable procedures. Scribe Attestation The scribe's documentation has been prepared under my direction and personally reviewed by me in its entirety. I confirm that the note above accurately reflects all work, treatment, procedures, and medical decision making performed by me. Departure Information Referrals Sonya Costa (PCP) Patient Instructions My [facility] Problem Qualifiers
[2016-11-15 12:49] LABS: URINE APPEARANCE CLEAR (CLEAR); URINE COLOR DK YELLOW; URINE NITRITE NEG (NEG); URINE PH 5.5 (4.5-7.5); URINE SPECIFIC GRAVITY 1.028 (1.000-1.030); UROBILINOGEN NEG (NEG); ZZURINE CULT IF INDIC CATH NO
[2016-11-15 12:54] LABS: MANUAL MICROSCOPIC REQUIRED? NO; REVIEW REQ? YES; URINE BILIRUBIN NEG (NEG)
[2016-11-15 13:10] LABS: URINE EPITHELIAL CELL AUTO 20-30 /lpf (0-5)
[2016-11-15 13:11] LABS: BENZODIAZEPINE, URINE NEG (NEG); COCAINE,URINE NEG (NEG); PHENCYCLIDINE, URINE NEG (NEG)
[2016-11-15] MEDS ORDERED: BISA10SU5 PR (13:24)
[2016-11-15] MEDS ORDERED: OLOP0.1S2 OPB (13:24)
[2016-11-15] MEDS ORDERED: [UNRECOGNIZED DRUG - CODE] IM (13:24)
[2016-11-15] MEDS ORDERED: MOML PO (13:24)
[2016-11-15] MEDS ORDERED: LORA2CON PO (13:24)
[2016-11-15] MEDS ORDERED: [UNRECOGNIZED DRUG - CODE] (13:24)
[2016-11-15 13:26] LABS: BASO % 0.1 %; BASO ABS # 0.01 K/uL (0-0.2); EOS % 1.7 %; HEMATOCRIT 32.4 % (37-47); IG% 0.5 %; LYMPH % 10.7 %; LYMPH ABS # 1.14 K/uL (1.2-3.4); MEAN CELL VOLUME 64.9 fL (80-100); MEAN CORPUSCULAR HGB CONC 29.3 g/dl (32-36); MEAN PLATELET VOLUME 9.3 fL (7.4-10.4); MONO % 7.5 %; NEUT % 79.5 %; PLATELET COUNT 363 K/uL (130-400); RED BLOOD COUNT 4.99 M/uL (4.2-5.4); WHITE BLOOD COUNT 10.65 K/uL (4.8-10.8)
[2016-11-15 13:38] LABS: BUN/CREATININE RATIO 37.8 (10-20); CALCIUM 7.2 mg/dl (8.5-10.1); CREATININE 0.52 mg/dl (0.60-1.20); MAGNESIUM 1.9 mg/dl (1.8-2.4)
[2016-11-15 13:49] LABS: ALB/GLOB RATIO 0.4 (0.9-2); PHOSPHORUS 2.5 mg/dl (2.5-4.9); THYROID STIMULATING HORMONE 0.736 uIu/ml (0.300-4.500)
[2016-11-15 13:53] LABS: ANISOCYTOSIS PRESENT; COMPLETE YES; MICROCYTOSIS PRESENT; POIKILOCYTOSIS PRESENT
[2016-11-15 13:56] LABS: ACETAMINOPHEN 7 ug/ml (10-30)
--- NOTE | 2016-11-15 14:18 | DIAGNOSTIC IMAGING REPORT ---
CHEST ONE VIEW PORTABLE CLINICAL HISTORY: 86 years-old Female presenting with agitation, refusing care. TECHNIQUE: Portable upright AP view of the chest was obtained. COMPARISON: 08/03/2016. 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 Atherosclerosis of the aortic arch. Cardiac silhouette normal. Minimal vague groundglass opacity at the right lung base with minimal blunting of the right costophrenic angle. No large effusion or pneumothorax. Osseous structures and upper abdomen normal. IMPRESSION: 1. Minimal right basilar opacity, possibly atelectasis although aspiration cannot be excluded. This may be accompanied by a trace right pleural effusion. 2. 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 Electronically signed by: Panchito Ruano M.D. 11/15/2016 2:17 PM Dictated Date/Time: 11/15/2016 2:15 PM
--- NOTE | 2016-11-15 15:19 | DIAGNOSTIC IMAGING REPORT ---
HEAD WITHOUT CONTRAST (CT) CT DOSE: 537.48 mGy.cm HISTORY: Mental status change mental health change TECHNIQUE: Multiaxial CT images of the head were performed without the use of intravenous contrast. A dose lowering technique was utilized adhering to the principles of ALARA. Comparison: 06/08/2015 Findings: The paranasal sinuses and mastoid air cells are clear. The calvarium and skull base are intact. The ventricles and sulci are within normal limits. There is no mass, hematoma, midline shift, or acute infarct. Age-related atrophy and chronic small vessel change. Impression: Chronic and age-related change. No acute process. The above report was generated using voice recognition software. It may contain grammatical, syntax or spelling errors. Electronically signed by: Eddie Harrell M.D. 11/15/2016 3:18 PM Dictated Date/Time: 11/15/2016 3:16 PM
[2016-11-15] MEDS ORDERED: SODIUM CHLORIDE 0.9% 1000ML 1,000 ML IV STA ×2 (16:12→17:09)
[2016-11-15] MEDS ORDERED: HALOPERIDOL LACTATE 5 MG/ML 1 ML VIAL IV STA (16:27)
[2016-11-15] MEDS ORDERED: LORAZEPAM 2 MG/ML 1 ML VIAL IV STA (16:41)
[2016-11-15] MEDS ORDERED: VANCOMYCIN INJ 1,250 MG in SODIUM CHLORIDE 0.9% 500ML 500 ML IV STA (17:09)
[2016-11-15] MEDS ORDERED: CEFEPIME IV 1,000 MG in DEXTROSE 5% 100ML 100 ML IV STA (17:09)
[2016-11-15] MEDS ORDERED: BISACODYL 10 MG SUPP PR PRN (18:30)
[2016-11-15] MEDS ORDERED: ALUMINUM/MAGNESIUM/SIMETH (MAALOX MAX) 30 ML UDC PO PRN (18:30)
[2016-11-15] MEDS ORDERED: MAGNESIUM HYDROXIDE SUSP 30 ML UDC PO PRN ×2 (18:30)
[2016-11-15] MEDS ORDERED: POLYETHYLENE (MIRALAX) 17 GM PACK PO PRN (18:30)
[2016-11-15] MEDS ORDERED: ACETAMINOPHEN 325 MG TAB PO PRN (18:30)
[2016-11-15 19:30] VITALS: BP 107/73; PULSE 106; TEMP 36.5; O2SAT 96; Ht 162.6 cm; Wt 53.2 kg
[2016-11-15] MEDS: LEVALBUTEROL 0.63MG/3 ML NEB INH SCH (20:20)
[2016-11-15] MEDS: IPRATROPIUM BROMIDE NEB SOLN 0.02% 2.5 ML VIAL INH SCH (20:20)
--- NOTE | 2016-11-15 20:21 | HISTORY & PHYSICAL EXAMINATION ---
DATE OF ADMISSION: 11/15/2016 ADMISSION CHIEF COMPLAINT: Change in mental status. HISTORY OF PRESENT ILLNESS: The patient is an 86-year-old female with past medical history of schizophrenia and COPD. The patient was a resident at [facility] and for the past few weeks she has been refusing her medications. Also, patient stopped eating many days ago and drinking. Yesterday, she was due for her Risperdal injection and she did not take it and she takes 50 mg every 2 weeks. Today, she was extremely agitated, angry and screaming and yelling at the staff and at everybody, they sent her our ER facility for evaluation. In the ED, she was found to have a systolic blood pressure of 70/50, and she was tachycardic, heart rate is about 130. She received 1 liter of fluid and the heart rate came down slightly to 115, blood pressure improved to 120/60. In ED, the lactic acid level came back 6 , but patient generally has no significant complaints otherwise. When I asked her why was she not eating at [facility] she said because food sucks. Source of her history is the patient herself partially but mainly from the nursing staff at [facility] which I spoke with personally. REVIEW OF SYSTEMS: Unobtainable due to patient's medical condition, but she gave us contradictory information about if she has pain or not, she told me she does not have pain, but she told one of the nurses that she does. PAST MEDICAL HISTORY: Paranoid schizophrenia; COPD, not on oxygen at [facility] osteoporosis, and hypertension. FAMILY HISTORY: Positive for hypertension. FAMILY AND SOCIAL HISTORY: As per our record, she is a smoker. Marital status is and she is a halfway resident for now. HOME MEDICATIONS: 1. Citalopram 5 mg p.o. daily. 2. Ferrous sulfate 325 p.o. daily. 3. Gabapentin 100 mg p.o. q. 12 hours. 4. MiraLax. 5. Risperidone 50 mg IM q. 2 weeks, was due yesterday but was not given, as per nursing staff. 6. Lorazepam 0.25 mg p.o. b.i.d. p.r.n. agitation. 7. Bisacodyl suppository. 8. Magnesium hydroxide. 9. Patanol 0.1% ophthalmic solution. ALLERGIES: THE PATIENT DOES HAVE A REPORTED ALLERGY TO HYDROCHLOROTHIAZIDE AND PENICILLIN and reaction is unknown at this point. PHYSICAL EXAMINATION: VITAL SIGNS: Temperature is 36.5, heart rate was 121. On my exam, respirations was 20, blood pressure was 71/48 but after fluid bolus 130/90 now, pulse ox 93% on room air. GENERAL: Average built, appears to be not in acute distress. HEENT: No jaundice. No pallor slightly dry mucous membrane. NECK: Supple. No swelling. LUNGS: Clear to auscultation bilaterally. Normal chest wall expansion. No chest wall tenderness. HEART: S1, S2, appears to be tachycardic, was unable to appreciate murmur, possibly due to tachycardia and patient's ABDOMEN: Appears to be soft and there was no guarding or rebound, but when I was pushing on her belly, she was moving and the nursing staff said she does that when you touch her anywhere. BACK: Inspection of the back was normal. EXTREMITIES: Moves all extremities, normal range of motion: No cyanosis, clubbing or edema. NEUROLOGIC: She is alert and oriented to place and to people. Cranial nerves II-XII appears to be intact. SKIN: No rash or jaundice or diaphoresis. PSYCHIATRIC: I would say was very agitated when she came in. Later on, she was calm, she was answering most of my questions appropriately, but she had possibly disruptive process of thinking. IMAGING: The patient had a CAT scan head that showed chronic and age-related changes, no acute process at this point. There was some atelectasis in her chest x-ray in the right basilar lobe, aorta might have some ectasia of 3.9 cm in diameter. LABORATORY DATA: White blood cell count 10.6, hemoglobin 9.5, platelets 363. BUN is 20, creatinine 0.5. Sodium 139, potassium is 4. Urine did not have any evidence of infection. White blood cell count in urine was 1-5. Albumin level was 1.4. TSH was 0.73. ASSESSMENT AND PLAN: 1. Acute change in mental status possibly secondary to below. 2. Schizophrenia with a relapse episode due to refusal of taking her medications. 3. Lactic acidemia possibly secondary to severe dehydration and hypertension. 4. Severe hypotension responded to fluid resuscitation. Currently, blood pressure is normal. 5. Chronic obstructive pulmonary disease, does not appear to be in acute exacerbation. 6. Osteoporosis. 7. Hypertension, currently hypertensive as mentioned above. INR came back as 8 , spoke with [facility] , she is not on coumadin and has no access to other patients meds will recheck INR PLAN: 1. The patient hemodynamically responded well to IV fluid hydration. 2. Continue normal saline. We will decrease the dose to 80 mL per hour, right now she already received 2 liters and we were not sure about her baseline cardiac condition. 3. We will start her on Atrovent and Xopenex as she started to develop a little bit heaviness in her breathing and that is why also I cut down on the fluids a little bit. 4. Serial lactic acid enzymes check. 5. If she gets agitated again, we will give her risperidone intramuscular injection, but she appears to be very calm now to me despite that she is not taking it for more than 2 weeks. So I will hold off and manage accordingly. 6. Consult psych for adjustment of her medications. 7. Repeat labs in a.m. including magnesium and phosphorus. 8. Consult dietitian for severe protein and caloric malnutrition, possibly will require supplements. 9. Order a speech bedside evaluation, I talked to [facility] nursing staff and they said she eats regular diet, but with very dry mucous membrane. We would like to evaluate her prior to starting her diet. 10. Heparin subQ for DVT prophylaxis. Further recommendation will follow accordingly. RANDEED
[2016-11-15 20:23] VITALS: PULSE 83; O2SAT 93
[2016-11-15] MEDS: GABAPENTIN 100 MG CAP PO SCH (20:28)
[2016-11-15] MEDS: SODIUM CHLORIDE 0.9% 1000ML 1,000 ML IV SCH (20:29)
[2016-11-15 20:50] LABS: PROTHROMBIN TIME (PATIENT) > 100.0 SECONDS (9.0-12.0)
[2016-11-15 20:54] LABS: INR > 8.0 (0.9-1.1)
[2016-11-15] MEDS ORDERED: HEPARIN SOD 5000 UNIT/0.5 ML CARP SQ SCH (21:00)
[2016-11-15] MEDS ORDERED: LEVALBUTEROL/IPRATROPIUM NEB INH SCH (21:00)
[2016-11-15] MEDS ORDERED: PHYTONADIONE INJ 10 MG in SODIUM CHLORIDE 0.9% 50ML 50 ML IV ONE (21:15)
[2016-11-16] VITALS (10 sets, daily range): BP systolic 91–122; BP diastolic 54–73; PULSE 81–99; TEMP 36.2–36.6; O2SAT 92–99
[2016-11-16 01:11] LABS: PROTHROMBIN TIME (PATIENT) > 100.0 SECONDS (9.0-12.0)
[2016-11-16 01:12] LABS: INR > 8.0 (0.9-1.1)
[2016-11-16] MEDS: LEVALBUTEROL 0.63MG/3 ML NEB INH SCH ×4 (01:40→19:45)
[2016-11-16] MEDS: IPRATROPIUM BROMIDE NEB SOLN 0.02% 2.5 ML VIAL INH SCH ×4 (01:40→19:45)
[2016-11-16] MEDS ORDERED: SODIUM CHLORIDE 0.9% 1000ML 1,000 ML IV STA ×2 (01:43→06:16)
[2016-11-16 03:11] LABS: ALB/GLOB RATIO 0.4 (0.9-2); CALCIUM 6.7 mg/dl (8.5-10.1); MAGNESIUM 1.5 mg/dl (1.8-2.4); PHOSPHORUS 2.5 mg/dl (2.5-4.9); POTASSIUM 3.5 mmol/L (3.5-5.1)
[2016-11-16 03:22] LABS: BUN/CREATININE RATIO 32.4 (10-20); CREATININE 0.63 mg/dl (0.60-1.20)
[2016-11-16 03:36] LABS: HEMATOCRIT 28.9 % (37-47); MEAN CELL VOLUME 64.7 fL (80-100); MEAN CORPUSCULAR HEMOGLOBIN 19.2 pg (25-34); MEAN CORPUSCULAR HGB CONC 29.8 g/dl (32-36); MEAN PLATELET VOLUME 9.1 fL (7.4-10.4); PLATELET COUNT 296 K/uL (130-400); RED BLOOD COUNT 4.47 M/uL (4.2-5.4); WHITE BLOOD COUNT 17.42 K/uL (4.8-10.8)
[2016-11-16 03:43] LABS: PROTHROMBIN TIME (PATIENT) > 100.0 SECONDS (9.0-12.0)
[2016-11-16 03:45] LABS: INR > 8.0 (0.9-1.1)
[2016-11-16 03:49] LABS: ANISOCYTOSIS PRESENT; COMPLETE YES; ECHINOCYTES 3+; EOS % 0.2 %; IG% 0.3 %; LYMPH % 5.5 %; LYMPH ABS # 0.95 K/uL (1.2-3.4); MICROCYTOSIS PRESENT; MONO % 5.7 %; NEUT % 88.3 %; OVALOCYTES 1+
[2016-11-16] MEDS ORDERED: MAGNESIUM SULFATE 1GM / D5W 1 GM BAG IV STA (05:31)
[2016-11-16] MEDS ORDERED: PHYTONADIONE INJ 10 MG in SODIUM CHLORIDE 0.9% 50ML 50 ML IV STA (05:43)
[2016-11-16] MEDS: MAGNESIUM SULFATE 1GM / D5W 1 GM in PREMIXED IN D5W 100 ML IV SCH ×2 (05:58→07:35)
[2016-11-16] MEDS: SODIUM CHLORIDE 0.9% 1000ML 1,000 ML IV SCH (07:35)
[2016-11-16 07:45] LABS: PARTIAL THROMBOPLASTIN RATIO > 11.0
[2016-11-16] MEDS: CITALOPRAM 20 MG TAB PO SCH (09:00)
[2016-11-16] MEDS: GABAPENTIN 100 MG CAP PO SCH ×2 (09:00→19:57)
[2016-11-16] MEDS: FERROUS SULFATE 325 MG TAB PO SCH (09:00)
[2016-11-16] MEDS: POLYETHYLENE (MIRALAX) 17 GM PACK PO SCH (09:00)
[2016-11-16 11:08] LABS: BASO % 0.1 %; BASO ABS # 0.01 K/uL (0-0.2); EOS % 0.5 %; HEMATOCRIT 28.9 % (37-47); IG% 0.2 %; LYMPH % 7.7 %; LYMPH ABS # 1.02 K/uL (1.2-3.4); MEAN CELL VOLUME 65.4 fL (80-100); MEAN CORPUSCULAR HEMOGLOBIN 19.2 pg (25-34); MEAN CORPUSCULAR HGB CONC 29.4 g/dl (32-36); MEAN PLATELET VOLUME 9.6 fL (7.4-10.4); MONO % 6.8 %; NEUT % 84.7 %; PLATELET COUNT 290 K/uL (130-400); RED BLOOD COUNT 4.42 M/uL (4.2-5.4); WHITE BLOOD COUNT 13.28 K/uL (4.8-10.8)
[2016-11-16 12:00] LABS: BUN/CREATININE RATIO 33.1 (10-20); CREATININE 0.63 mg/dl (0.60-1.20); MAGNESIUM 2.2 mg/dl (1.8-2.4); POTASSIUM 3.4 mmol/L (3.5-5.1)
[2016-11-16 12:03] LABS: ANISOCYTOSIS PRESENT; COMPLETE YES; ECHINOCYTES 3+; HYPOCHROMIA PRESENT; MICROCYTOSIS PRESENT
[2016-11-16 12:04] LABS: PARTIAL THROMBOPLASTIN RATIO > 11.0
[2016-11-16] MEDS ORDERED: PHYTONADIONE 5 MG TAB PO STA (14:18)
[2016-11-16] MEDS: NSS + 20MEQ KCL 1000ML 1,000 ML IV SCH ×2 (14:48→19:57)
[2016-11-16] MEDS ORDERED: VANCOMYCIN INJ 1,250 MG in SODIUM CHLORIDE 0.9% 250ML 250 ML IV ONE (16:15)
[2016-11-16] MEDS ORDERED: VANCOMYCIN CONSULT ACTIVE PRN (16:15)
--- NOTE | 2016-11-16 16:17 | Pharmacy Progress Note ---
Pharmacy Antibiotic Consult Date of Service: Nov 16, 2016. Pharmacy Dosing Scope Pharmacy is consulted to initiate vancomycin IV dosing therapy, order appropriate labs and adjust drug dose/frequency. Subjective The patient is a 86 year old female admitted on Nov 15, 2016 at 18:30. Objective Height (Feet): 5 Height (Inches): 4.00 Weight (Kilograms): 52.200 Lab Results (24hrs): Test 11/15/16 17:04 11/16/16 00:17 11/16/16 02:25 11/16/16 10:56 Bedside Lactic Acid Venous 6.04 mmol/L (0.90-1.70) Prothrombin Time > 100.0 SECONDS > 100.0 SECONDS Prothromb Time International Ratio > 8.0 (0.9-1.1) > 8.0 (0.9-1.1) White Blood Count 17.42 K/uL (4.8-10.8) 13.28 K/uL (4.8-10.8) Red Blood Count 4.47 M/uL (4.2-5.4) 4.42 M/uL (4.2-5.4) Hemoglobin 8.6 g/dL (12.0-16.0) 8.5 g/dL (12.0-16.0) Hematocrit 28.9 % (37-47) 28.9 % (37-47) Mean Corpuscular Volume 64.7 fL (80-100) 65.4 fL (80-100) Mean Corpuscular Hemoglobin 19.2 pg (25-34) 19.2 pg (25-34) Mean Corpuscular Hemoglobin Concent 29.8 g/dl (32-36) 29.4 g/dl (32-36) Platelet Count 296 K/uL (130-400) 290 K/uL (130-400) Mean Platelet Volume 9.1 fL (7.4-10.4) 9.6 fL (7.4-10.4) Neutrophils (%) (Auto) 88.3 % 84.7 % Lymphocytes (%) (Auto) 5.5 % 7.7 % Monocytes (%) (Auto) 5.7 % 6.8 % Eosinophils (%) (Auto) 0.2 % 0.5 % Basophils (%) (Auto) 0.0 % 0.1 % Neutrophils # (Auto) 15.38 K/uL (1.4-6.5) 11.27 K/uL (1.4-6.5) Lymphocytes # (Auto) 0.95 K/uL (1.2-3.4) 1.02 K/uL (1.2-3.4) Monocytes # (Auto) 1.00 K/uL (0.11-0.59) 0.90 K/uL (0.11-0.59) Eosinophils # (Auto) 0.03 K/uL (0-0.5) 0.06 K/uL (0-0.5) Basophils # (Auto) 0.00 K/uL (0-0.2) 0.01 K/uL (0-0.2) RDW Standard Deviation 52.5 fL (36.4-46.3) 53.9 fL (36.4-46.3) RDW Coefficient of Variation 22.5 % (11.5-14.5) 22.6 % (11.5-14.5) Immature Granulocyte % (Auto) 0.3 % 0.2 % Immature Granulocyte # (Auto) 0.06 K/uL (0.00-0.02) 0.02 K/uL (0.00-0.02) Anisocytosis PRESENT PRESENT Microcytosis PRESENT PRESENT Ovalocytes 1+ Echinocytes 3+ 3+ Activated Partial Thromboplast Time > 300.0 SECONDS > 300.0 SECONDS Partial Thromboplastin Ratio > 11.0 > 11.0 Sodium Level 139 mmol/L (136-145) 142 mmol/L (136-145) Potassium Level 3.5 mmol/L (3.5-5.1) 3.4 mmol/L (3.5-5.1) Chloride Level 112 mmol/L (98-107) 114 mmol/L (98-107) Carbon Dioxide Level 20 mmol/L (21-32) 17 mmol/L (21-32) Anion Gap 7.0 mmol/L (3-11) 11.0 mmol/L (3-11) Blood Urea Nitrogen 20 mg/dl (7-18) 21 mg/dl (7-18) Creatinine 0.63 mg/dl (0.60-1.20) 0.63 mg/dl (0.60-1.20) Est Creatinine Clear Calc Drug Dose 49.1 ml/min 53.8 ml/min Estimated GFR () 94.8 94.8 Estimated GFR (Non- 81.8 81.8 BUN/Creatinine Ratio 32.4 (10-20) 33.1 (10-20) Random Glucose 107 mg/dl (70-99) 120 mg/dl (70-99) Lactic Acid Level 2.7 mmol/L (0.4-2.0) 3.6 mmol/L (0.4-2.0) Calcium Level 6.7 mg/dl (8.5-10.1) 7.0 mg/dl (8.5-10.1) Phosphorus Level 2.5 mg/dl (2.5-4.9) Magnesium Level 1.5 mg/dl (1.8-2.4) 2.2 mg/dl (1.8-2.4) Total Bilirubin 0.4 mg/dl (0.2-1) Aspartate Amino Transf (AST/SGOT) 21 U/L (15-37) Alanine Aminotransferase (ALT/SGPT) 18 U/L (12-78) Alkaline Phosphatase 185 U/L (45-117) Total Protein 4.4 gm/dl (6.4-8.2) Albumin 1.3 gm/dl (3.4-5.0) Globulin 3.1 gm/dl (2.5-4.0) Albumin/Globulin Ratio 0.4 (0.9-2) Hypochromasia PRESENT Iron Level 8 mcg/dl (35-150) Total Iron Binding Capacity 150 mcg/dl (250-450) Ferritin 29.0 ng/ml (8.0-388.0) Micro Results: Item Value Date Time MRSA DNA Surveillance Screen - Final Complete 11/15/16 2228 Nasal Specimen Negative for MRSA by DNA Probe Blood Culture Received 11/15/16 1707 Blood Pending Blood Culture - Preliminary Resulted 11/15/16 1650 Blood Gram Positive Cocci Assessment & Plan Vancomycin started due to 1/2 blood cultures now positive for Gm+ cocci. Vancomycin: * LD of vancomycin 1250 mg (~25 mg/kg) x 1 given * Will start MD of vancomycin 750 mg (~15 mg/kg) iv q 14 hr to achieve an estimated trough ~15-20 mcg/ml (goal for bacteremia) * Estimated kinetics: t1/2 ~14 hrs, ke~0.048 hr-1, CrCl ~53 ml/min * Vancomycin ordered only empirically, will follow up to determine duration and order trough as necessary. Pharmacy will continue to follow and will adjust dose/frequency as necessary. Thank you
--- NOTE | 2016-11-16 18:50 | Family Medicine Progress Note ---
Progress Note Date of Service Nov 16, 2016. Subjective Pt evaluation today including: conversation w/ patient, chart review, lab review, review of inpatient medication list Pain: No pain reported PO Intake: Tolerating mechincal soft regular diet Voiding: no voiding problems Ms. Weller was unwilling to cooperate with a full history, but did inform us that she was not in any pain, nor was she having difficulty breathing. Cardiovascular: No chest pain Abdomen: No pain Medications Current Inpatient Medications Medications (Trade) Dose Ordered Sig/Elijah Route Start Time Stop Time Status Last Admin Dose Admin Bisacodyl (Dulcolax Supp) 10 mg DAILY PRN MA 11/15/16 18:30 12/15/16 18:29 Gabapentin (Neurontin Cap) 100 mg Q12 PO 11/15/16 21:00 12/15/16 20:59 Citalopram Hydrobromide (celeXA TAB) 5 mg DAILY PO 11/16/16 09:00 12/16/16 08:59 Ferrous Sulfate (Feosol Tab) 325 mg DAILY PO 11/16/16 09:00 12/16/16 08:59 Miscellaneous Information (Order Awaiting Action) 1 ea QS N/A 11/16/16 00:00 12/16/16 00:00 Miscellaneous Information (Order Awaiting Action) 1 ea QS N/A 11/16/16 00:00 12/16/16 00:00 Polyethylene (Miralax Powder Packet) 17 gm DAILY PO 11/16/16 09:00 12/16/16 08:59 Acetaminophen (Tylenol Tab) 650 mg Q4H PRN PO 11/15/16 18:30 12/15/16 18:29 Al Hydrox/Mg Hydrox/Simethicone (Maalox Max Susp) 15 ml Q4H PRN PO 11/15/16 18:30 12/15/16 18:29 Magnesium Hydroxide (Milk Of Magnesia Susp) 30 ml Q12H PRN PO 11/15/16 18:30 12/15/16 18:29 Polyethylene (Miralax Powder Packet) 17 gm DAILY PRN PO 11/15/16 18:30 12/15/16 18:29 Ipratropium [place] (Atrovent 0.02% 0.5MG/2.5ML Neb) 0.5 mg Q6R INH 11/15/16 21:00 12/15/16 20:59 11/16/16 07:31 0.5 MG Levalbuterol (Xopenex 0.63 Mg/ 3 Ml Neb) 0.63 mg Q6R INH 11/15/16 21:00 12/15/16 20:59 11/16/16 07:31 0.63 MG Potassium Chloride/Sodium Chloride 1,000 ml @ 150 mls/hr Q6H40M IV 11/16/16 15:00 12/16/16 14:59 11/16/16 14:48 150 MLS/HR Vancomycin HCl 1250 mg/Sodium Chloride 275 ml @ 125 mls/hr TODAY@1615 ONCE IV 11/16/16 16:15 11/16/16 18:26 11/16/16 16:47 125 MLS/HR Vancomycin HCl (Consult) 1 ea UD PRN N/A 11/16/16 16:15 12/16/16 16:14 Vancomycin HCl 750 mg/Sodium Chloride 265 ml @ 125 mls/hr Q14H IV 11/17/16 06:00 11/19/16 05:59 Enteral Nutritional Formula (Boost Plus Vanilla) 1 can DAILY PO 11/17/16 09:00 12/17/16 08:59 Enteral Nutritional Formula (Boost Breeze Nutritional Drink) 1 box PM PO 11/16/16 21:00 12/16/16 20:59 Objective Vital Signs Date Time Temp Pulse Resp B/P (MAP) Pulse Ox O2 Delivery O2 Flow Rate FiO2 11/16/16 15:23 36.4 81 18 102/61 (75) 92 Nasal Cannula 2.0 11/16/16 12:00 Room Air 11/16/16 11:35 36.4 88 18 103/73 (83) 99 11/16/16 08:10 36.4 83 18 122/71 (88) 94 Room Air 11/16/16 08:00 Room Air 11/16/16 07:35 81 18 95 Room Air 11/16/16 04:00 Room Air 11/16/16 04:00 36.4 90 20 95/63 (74) 93 Room Air 11/16/16 00:10 36.5 94 18 91/54 (66) 93 Room Air 11/16/16 00:10 Room Air 11/15/16 20:23 83 18 93 Room Air 11/15/16 19:30 36.5 106 24 107/73 96 Room Air 11/15/16 18:54 121 93 17 18:49 122 84 17 18:46 111/64 17 18:44 113 94 17 18:39 115 93 17 18:34 112 94 17 18:34 112 94 17 18:31 127/69 17 18:31 127/69 11/15/16 18:29 113 93 17 18:29 113 93 17 18:24 113 96 17 18:24 113 96 11/15/16 18:19 121 92 17 18:19 121 92 17 18:16 116/65 17 18:16 116/65 17 18:14 110 92 17 18:14 110 92 17 18:09 114 93 11/15/16 18:09 114 93 11/15/16 18:04 102 108/72 95 17 18:04 102 108/72 95 17 18:01 88/81 11/15/16 18:01 88/81 11/15/16 17:59 111 91 17 17:59 111 91 17 17:54 111 90 17 17:54 111 90 17 17:49 113 88 17 17:49 113 88 17 17:46 140/66 17 17:46 140/66 17 17:45 108 22 140/66 95 Room Air 11/15/16 17:44 117 90 17 17:44 117 90 17 17:39 149 97 17 17:39 149 97 17 17:34 185 96 17 17:34 185 96 17 17:33 128 20 132/81 94 Room Air 11/15/16 17:32 132/81 17 17:32 98 Room Air 17 17:32 132/81 17 17:29 109 98 11/15/16 17:29 109 98 11/15/16 17:24 130 97 11/15/16 17:24 130 97 Physical Exam General Appearance: WD/WN Respiratory/Chest: no respiratory distress, no accessory muscle use Cardiovascular: no edema, no JVD Neurologic/Psychiatric: alert Laboratory Results 11/16/16 10:56 Red Blood Count 4.42, Mean Corpuscular Volume 65.4, Mean Corpuscular Hemoglobin 19.2, Mean Corpuscular Hemoglobin Concent 29.4, Mean Platelet Volume 9.6, Neutrophils (%) (Auto) 84.7, Lymphocytes (%) (Auto) 7.7, Monocytes (%) (Auto) 6.8, Eosinophils (%) (Auto) 0.5, Basophils (%) (Auto) 0.1, Neutrophils # (Auto) 11.27, Lymphocytes # (Auto) 1.02, Monocytes # (Auto) 0.90, Eosinophils # (Auto) 0.06, Basophils # (Auto) 0.01 11/16/16 10:56 Test 11/16/16 02:25 11/16/16 10:56 Ovalocytes 1+ Prothrombin Time > 100.0 SECONDS Prothromb Time International Ratio > 8.0 (0.9-1.1) Phosphorus Level 2.5 mg/dl (2.5-4.9) Total Bilirubin 0.4 mg/dl (0.2-1) Aspartate Amino Transf (AST/SGOT) 21 U/L (15-37) Alanine Aminotransferase (ALT/SGPT) 18 U/L (12-78) Alkaline Phosphatase 185 U/L (45-117) Total Protein 4.4 gm/dl (6.4-8.2) Albumin 1.3 gm/dl (3.4-5.0) Globulin 3.1 gm/dl (2.5-4.0) Albumin/Globulin Ratio 0.4 (0.9-2) White Blood Count 13.28 K/uL (4.8-10.8) Red Blood Count 4.42 M/uL (4.2-5.4) Hemoglobin 8.5 g/dL (12.0-16.0) Hematocrit 28.9 % (37-47) Mean Corpuscular Volume 65.4 fL (80-100) Mean Corpuscular Hemoglobin 19.2 pg (25-34) Mean Corpuscular Hemoglobin Concent 29.4 g/dl (32-36) Platelet Count 290 K/uL (130-400) Mean Platelet Volume 9.6 fL (7.4-10.4) Neutrophils (%) (Auto) 84.7 % Lymphocytes (%) (Auto) 7.7 % Monocytes (%) (Auto) 6.8 % Eosinophils (%) (Auto) 0.5 % Basophils (%) (Auto) 0.1 % Neutrophils # (Auto) 11.27 K/uL (1.4-6.5) Lymphocytes # (Auto) 1.02 K/uL (1.2-3.4) Monocytes # (Auto) 0.90 K/uL (0.11-0.59) Eosinophils # (Auto) 0.06 K/uL (0-0.5) Basophils # (Auto) 0.01 K/uL (0-0.2) RDW Standard Deviation 53.9 fL (36.4-46.3) RDW Coefficient of Variation 22.6 % (11.5-14.5) Immature Granulocyte % (Auto) 0.2 % Immature Granulocyte # (Auto) 0.02 K/uL (0.00-0.02) Hypochromasia PRESENT Anisocytosis PRESENT Microcytosis PRESENT Echinocytes 3+ Activated Partial Thromboplast Time > 300.0 SECONDS Partial Thromboplastin Ratio > 11.0 Anion Gap 11.0 mmol/L (3-11) Est Creatinine Clear Calc Drug Dose 53.8 ml/min Estimated GFR () 94.8 Estimated GFR (Non- 81.8 BUN/Creatinine Ratio 33.1 (10-20) Lactic Acid Level 3.6 mmol/L (0.4-2.0) Calcium Level 7.0 mg/dl (8.5-10.1) Magnesium Level 2.2 mg/dl (1.8-2.4) Iron Level 8 mcg/dl (35-150) Total Iron Binding Capacity 150 mcg/dl (250-450) Ferritin 29.0 ng/ml (8.0-388.0) Date/Time Source Procedure Growth Status 11/15/16 22:28 Nasal MRSA DNA Surveillance Screen - Final Specimen Negative for MRSA by DNA Probe Complete Assessment and Plan Ms. Weller is an 86 year old lady with a history of schizophrenia, COPD and HTN who presented to [facility] due to altered mental status, not eating & not taking her meds Mental Status Alteration - likely due to hypovolemic shock - pt was hypotensive and tachycardic on arrival - continue IV fluids w/potassium - responding well to fluids Elevated WBC - WBC are 17.42 today, increased from 10.65 yesterday - One blood culture came back positive for gram positive cocci - treated with 1g of vancomycin while we wait for results of second blood culture - UA clear - Lactic acid 3.6 today - will recheck tomorrow - difficult to examine as she is noncooperative, but was yelling all day & not displaying any signs of respiratory distress Elevated INR/APTT - Today's INR was >8 and APTT>300 - Normal LFTs, not on coumadin or heparin, INR one year ago was 1 - no episodes of bleeding - 15mg of Vit K given - will continue to monitor Swallowing Difficulties - assessed by speech and put on mechanical soft regular diet *currently refusing to take any oral medications, all prescribed meds have to be IV VTE Prophylaxis - already overanticoagulated Code - DNR Disposition - remains on med/surg Resident Physician Supervision Note: I interviewed and examined the patient. Discussed with Dr. Gordillo and agree with findings and plan as documented in the note. Any exceptions or clarifications are listed here: None Documented By: Jared Alexandraur minimal hx because she's telling me to get out. in between yelling at me, she does deny pain. ROS otherwise unobtainable except for as above vitals noted nad, breathing unlabored no dyspnea or accessory muscle use and has a vigorous yell. does not allow for actual physical exam. hypotension - seeming less likely septic more likely hypovolemic from poor intake. (+) blood culture -suspect contaminant but obligated to cover until further growth elevated INR - situation seems to fit with malnutrition but ??this degree of elevation - give additional vitamin K and follow otherwise as above, appears improving Resident Tracking Resident Involvement: Resident Care Provided Care Provided: Adult Hospital Medicine
[2016-11-16] MEDS ORDERED: PHYTONADIONE INJ 10 MG in SODIUM CHLORIDE 0.9% 50ML 50 ML IV ONE (19:30)
[2016-11-16] MEDS: BOOST BREEZE NUTRITION DRINK 1 BOX PO SCH (19:57)
[2016-11-17] VITALS (8 sets, daily range): BP systolic 101–143; BP diastolic 64–88; PULSE 85–112; TEMP 36.3–36.6; O2SAT 92–100
[2016-11-17] MEDS: LEVALBUTEROL 0.63MG/3 ML NEB INH SCH ×4 (01:54→18:55)
[2016-11-17] MEDS: IPRATROPIUM BROMIDE NEB SOLN 0.02% 2.5 ML VIAL INH SCH ×4 (01:54→18:55)
[2016-11-17] MEDS: NSS + 20MEQ KCL 1000ML 1,000 ML IV SCH ×2 (03:27→10:45)
[2016-11-17] MEDS ORDERED: VANCOMYCIN INJ 750 MG in SODIUM CHLORIDE 0.9% 250ML 250 ML IV SCH (06:00)
[2016-11-17 06:38] LABS: CREATININE 0.52 mg/dl (0.60-1.20)
[2016-11-17 07:01] LABS: PROTHROMBIN TIME (PATIENT) > 100.0 SECONDS (9.0-12.0)
[2016-11-17 07:03] LABS: INR > 8.0 (0.9-1.1)
[2016-11-17] MEDS: FERROUS SULFATE 325 MG TAB PO SCH (08:37)
[2016-11-17] MEDS: POLYETHYLENE (MIRALAX) 17 GM PACK PO SCH (08:37)
[2016-11-17] MEDS: BOOST PLUS VANILLA PO SCH ×2 (08:37)
[2016-11-17] MEDS: CITALOPRAM 20 MG TAB PO SCH (08:37)
[2016-11-17] MEDS: GABAPENTIN 100 MG CAP PO SCH ×2 (08:37→21:00)
[2016-11-17 12:36] LABS: HEMATOCRIT 31.3 % (37-47); MEAN CELL VOLUME 64.5 fL (80-100); MEAN CORPUSCULAR HEMOGLOBIN 19.2 pg (25-34); MEAN CORPUSCULAR HGB CONC 29.7 g/dl (32-36); MEAN PLATELET VOLUME 9.2 fL (7.4-10.4); PLATELET COUNT 315 K/uL (130-400); RED BLOOD COUNT 4.85 M/uL (4.2-5.4); WHITE BLOOD COUNT 14.36 K/uL (4.8-10.8)
[2016-11-17 13:14] LABS: BUN/CREATININE RATIO 38.5 (10-20); CALCIUM 7.2 mg/dl (8.5-10.1); CREATININE 0.62 mg/dl (0.60-1.20); POTASSIUM 4.3 mmol/L (3.5-5.1)
[2016-11-17] MEDS ORDERED: SODIUM CHLOR 0.45% + 20MEQ KCL 1,000 ML IV SCH (15:00)
[2016-11-17] MEDS ORDERED: ERGOCALCIFEROL 50,000 INTER.UNIT CAP PO ONE (15:00)
--- NOTE | 2016-11-17 16:55 | Family Medicine Progress Note ---
Progress Note Date of Service Nov 17, 2016. Subjective Pt evaluation today including: conversation w/ patient, chart review, lab review, conversation w/ small business consultant, review of inpatient medication list Pain: No pain reported PO Intake: Tolerating PO intake Voiding: no voiding problems Ms. Weller was unwilling to answer any questions other than she is not in any pain, nor does she have any complaints today. Respiratory: No cough, No sputum, No shortness of breath Cardiovascular: No chest pain Abdomen: No pain Musculoskeletal: No joint pain All Other Systems: Reviewed and Negative Medications Current Inpatient Medications Medications (Trade) Dose Ordered Sig/Elijah Route Start Time Stop Time Status Last Admin Dose Admin Bisacodyl (Dulcolax Supp) 10 mg DAILY PRN [place] 11/15/16 18:30 12/15/16 18:29 Gabapentin (Neurontin Cap) 100 mg Q12 PO 11/15/16 21:00 12/15/16 20:59 Citalopram Hydrobromide (celeXA TAB) 5 mg DAILY PO 11/16/16 09:00 12/16/16 08:59 Ferrous Sulfate (Feosol Tab) 325 mg DAILY PO 11/16/16 09:00 12/16/16 08:59 Miscellaneous Information (Order Awaiting Action) 1 ea QS N/A 11/16/16 00:00 12/16/16 00:00 Miscellaneous Information (Order Awaiting Action) 1 ea QS N/A 11/16/16 00:00 12/16/16 00:00 Polyethylene (Miralax Powder Packet) 17 gm DAILY PO 11/16/16 09:00 12/16/16 08:59 Acetaminophen (Tylenol Tab) 650 mg Q4H PRN PO 11/15/16 18:30 12/15/16 18:29 Al Hydrox/Mg Hydrox/Simethicone (Maalox Max Susp) 15 ml Q4H PRN PO 11/15/16 18:30 12/15/16 18:29 Magnesium Hydroxide (Milk Of Magnesia Susp) 30 ml Q12H PRN PO 11/15/16 18:30 12/15/16 18:29 Polyethylene (Miralax Powder Packet) 17 gm DAILY PRN PO 11/15/16 18:30 12/15/16 18:29 Ipratropium [place] (Atrovent 0.02% 0.5MG/2.5ML Neb) 0.5 mg Q6R INH 11/15/16 21:00 12/15/16 20:59 11/16/16 07:31 0.5 MG Levalbuterol (Xopenex 0.63 Mg/ 3 Ml Neb) 0.63 mg Q6R INH 11/15/16 21:00 12/15/16 20:59 11/16/16 07:31 0.63 MG Enteral Nutritional Formula (Boost Plus Vanilla) 1 can DAILY PO 11/17/16 09:00 12/17/16 08:59 Enteral Nutritional Formula (Boost Breeze Nutritional Drink) 1 box PM PO 11/16/16 21:00 12/16/16 20:59 Potassium Chloride/Sodium Chloride 1,000 ml @ 125 mls/hr Q8H IV 11/17/16 15:00 12/17/16 14:59 Ergocalciferol (Vitamin D Cap) 50,000 interunit Q7D PO 11/18/16 09:00 12/18/16 08:59 Cholecalciferol (Vitamin D Tab) 4,000 inter.unit QAM PO 11/18/16 09:00 12/18/16 08:59 Objective Vital Signs Date Time Temp Pulse Resp B/P (MAP) Pulse Ox O2 Delivery O2 Flow Rate FiO2 11/17/16 15:45 36.4 100 16 143/88 (106) 100 Nasal Cannula 2.0 11/17/16 12:00 Nasal Cannula 2.0 11/17/16 12:00 36.4 88 18 107/66 (80) 98 Nasal Cannula 2.0 11/17/16 08:00 36.4 85 18 103/65 (78) 97 Nasal Cannula 2.0 11/17/16 08:00 Nasal Cannula 2.0 11/17/16 04:00 Nasal Cannula 2.0 11/17/16 03:49 36.3 91 18 101/68 (79) 95 Nasal Cannula 11/17/16 00:06 36.3 104 20 118/68 (85) 11/17/16 00:00 Nasal Cannula 2.0 11/16/16 20:51 36.4 88 20 101/70 (80) 92 Nasal Cannula 2.0 11/16/16 20:25 36.4 83 18 98/66 (77) 96 Nasal Cannula 2.0 11/16/16 20:09 36.6 99 18 112/72 (85) 95 Nasal Cannula 2.0 11/16/16 20:00 Nasal Cannula 2.0 11/16/16 19:33 36.2 91 22 104/60 (75) 95 2.0 Physical Exam General Appearance: WD/WN, no apparent distress Respiratory/Chest: no respiratory distress, no accessory muscle use Cardiovascular: regular rate, rhythm Extremities: + swelling (extremities are edematous - likely due to IV fluids) Neurologic/Psychiatric: alert Skin: + pertinent finding (left arm swollen and erythematous) Laboratory Results 11/17/16 12:17 11/17/16 12:16 Test 11/16/16 19:37 11/17/16 05:33 11/17/16 12:16 11/17/16 12:17 Stool Occult Blood NEGATIVE (NEGATIVE) Prothrombin Time > 100.0 SECONDS Prothromb Time International Ratio > 8.0 (0.9-1.1) Vitamin B12 Level > 2000 pg/mL (211-911) 25-Hydroxy Vitamin D Total 4.6 ng/ml (30-100) Anion Gap 10.0 mmol/L (3-11) Est Creatinine Clear Calc Drug Dose 55.7 ml/min Estimated GFR () 95.3 Estimated GFR (Non- 82.2 BUN/Creatinine Ratio 38.5 (10-20) Calcium Level 7.2 mg/dl (8.5-10.1) Red Blood Count 4.85 M/uL (4.2-5.4) Mean Corpuscular Volume 64.5 fL (80-100) Mean Corpuscular Hemoglobin 19.2 pg (25-34) Mean Corpuscular Hemoglobin Concent 29.7 g/dl (32-36) RDW Standard Deviation 53.6 fL (36.4-46.3) RDW Coefficient of Variation 22.9 % (11.5-14.5) Mean Platelet Volume 9.2 fL (7.4-10.4) Nucleated RBC Absolute Count (auto) 0.08 K/uL (0-0) Nucleated Red Blood Cells % 0.5 % Assessment and Plan Ms. Weller is an 86 year old lady with a history of schizophrenia, COPD and HTN who presented to [facility] due to altered mental status, not eating & not taking her meds Mental Status Alteration - likely due to hypovolemic shock - pt was hypotensive and tachycardic on arrival - reduced IV fluids to 1/2 NS as becoming hypernatremic & slowed rate down as she was appearing edematous Elevated WBC - WBC are 14.36 today, overall decreasing - will continue to monitor, but no obvious source of infection - One blood culture came back positive for gram positive cocci - the other one was negative - likely contamination. D/c vancomycin - UA clear Elevated INR/APTT - Today's INR was still >8 and APTT>300, despite IV vitamin K - Normal LFTs, not on coumadin or heparin, INR one year ago was 1 - no episodes of bleeding, stool occult negative - hematology consulted - thank you for input - will perform mixing study to determine if clotting factor deficiency or presence of inhibitors, but likely due to malnourished state Low Vit D - supplement with 50,000 Drisdol weekly and 4,000 units of Vitamin D daily - likely due to malnourishment Swollen & erythematous left arm - upper extremity doppler ultrasound to assess *currently refusing to take any oral medications, all prescribed meds have to be IV VTE Prophylaxis - already overanticoagulated Code - DNR Disposition - transfer to med/surg Resident Physician Supervision Note: I interviewed and examined the patient. Discussed with Dr. Gordillo and agree with findings and plan as documented in the note. Any exceptions or clarifications are listed here: None Documented By: Jared Starkey tells me to go away. won't answer questions today. try to have discussion with her but she keeps telling me to leave. ROS otherwise unobtainable except for as above vitals noted nad breathing unlabored visibly edematous L arm worse, won't allow any true PE. baseline pallor nothing new. no respiratory distress vigorous yell without dyspnea or accessory muscles hypotension - likely was from poor PO intake positive blood culture - contaminant - stop vanco elevated INR - after further d/w hematology, appearing more than likely is malnutrition related - just not simply poor vitamin K intake, also such poor protein that she has no "building blocks" -- mixing study and fibrinogen pending vitamin D deficieny- replace as she allows, repeat level 3 months hypernatremia - equilibrating to NSS - since no longer hypotensive, and is edematous - stop fluids edema - third spacing from poor protein and IVF otherwise as above Resident Tracking Resident Involvement: Resident Care Provided Care Provided: Adult Hospital Medicine
--- NOTE | 2016-11-17 17:12 | Oncology Consultation ---
Oncology/Heme Consultation Date of Consultation: Nov 17, 2016. Attending Physician: Jared Starkey D.O. Reason for Consultation: Markedly prolonged PTT/PT Confusion History of Present Illness Ms. Weller is a 86 year old woman with a history of COPD and schizophrenia. She was admitted from a nursing facility on 11/15 with acute confusion and hypotension. She was volume resuscitated and started on broad spectrum antibiotics. Her shock resolved over the following day. On admission, she was found to have PTT and PT/INR that were longer than can be measured. This has persisted throughout her stay, despite 10 mg IV vitamin K. She has not had any severe bleeding, though she does have what appears to be a hematoma over her left elbow and upper arm. She does not recall any specific trauma there. After speaking with her physicians at her nursing facility, she has apparently been refusing to eat for some time now. She gets liquids at times but is hardly eating solid food. She has consistently lost weight over this time. Past Medical/Surgical History Medical Problems: (1) Agitation Status: Acute (2) Failure to thrive Status: Acute (3) Hypotension Status: Acute (4) Mental health problem Status: Acute (5) Noncompliance with medication regimen Status: Acute (6) Refusal of care by patient Status: Acute (7) Schizoaffective disorder, chronic condition Status: Acute (8) Tachycardia Status: Acute Family History Hypertension Social History Smoking Status: Former Smoker Marital Status: Housing Status: longterm Occupation Status: retired Allergies Coded Allergies: Hydrochlorothiazide (Verified Allergy, Unknown, UNKNOWN, 11/15/16) Penicillins (Verified Allergy, Unknown, UNKNOWN, 11/15/16) Home Medications Scheduled Citalopram Hydrobromide (Citalopram Hydrobromide), 5 MG PO DAILY Ferrous Sulfate (Kp Ferrous Sulfate), 325 MG PO DAILY Gabapentin (Neurontin), 100 MG PO Q12 Polyethylene Glycol 3350 (Miralax), 17 GM PO DAILY Risperidone (Risperdal Consta), 50 MG IM [id number] Scheduled PRN Bisacodyl (Bisacodyl), 10 MG UT DAILY PRN for if no bm for 4 days Lorazepam (Lorazepam Intensol), 0.25 MG PO BID PRN for Agitation Magnesium Hydroxide (Milk Of Magnesia), 30 ML PO prn PRN for no bm for 3 days Olopatadine Hcl (Patanol 0.1% Oph), 1 DROP OPB BID PRN for Itching Miscellaneous Medications Risperidone (Risperdal Consta), 50 Current Inpatient Medications Current Inpatient Medications Medications (Trade) Dose Ordered Sig/Elijah Route Start Time Stop Time Status Last Admin Dose Admin Bisacodyl (Dulcolax Supp) 10 mg DAILY PRN UT 11/15/16 18:30 12/15/16 18:29 Gabapentin (Neurontin Cap) 100 mg Q12 PO 11/15/16 21:00 12/15/16 20:59 Citalopram Hydrobromide (celeXA TAB) 5 mg DAILY PO 11/16/16 09:00 12/16/16 08:59 Ferrous Sulfate (Feosol Tab) 325 mg DAILY PO 11/16/16 09:00 12/16/16 08:59 Miscellaneous Information (Order Awaiting Action) 1 ea QS N/A 11/16/16 00:00 12/16/16 00:00 Miscellaneous Information (Order Awaiting Action) 1 ea QS N/A 11/16/16 00:00 12/16/16 00:00 Polyethylene (Miralax Powder Packet) 17 gm DAILY PO 11/16/16 09:00 12/16/16 08:59 Acetaminophen (Tylenol Tab) 650 mg Q4H PRN PO 11/15/16 18:30 12/15/16 18:29 Al Hydrox/Mg Hydrox/Simethicone (Maalox Max Susp) 15 ml Q4H PRN PO 11/15/16 18:30 12/15/16 18:29 Magnesium Hydroxide (Milk Of Magnesia Susp) 30 ml Q12H PRN PO 11/15/16 18:30 12/15/16 18:29 Polyethylene (Miralax Powder Packet) 17 gm DAILY PRN PO 11/15/16 18:30 12/15/16 18:29 Ipratropium [place] (Atrovent 0.02% 0.5MG/2.5ML Neb) 0.5 mg Q6R INH 11/15/16 21:00 12/15/16 20:59 11/16/16 07:31 0.5 MG Levalbuterol (Xopenex 0.63 Mg/ 3 Ml Neb) 0.63 mg Q6R INH 11/15/16 21:00 12/15/16 20:59 11/16/16 07:31 0.63 MG Enteral Nutritional Formula (Boost Plus Vanilla) 1 can DAILY PO 11/17/16 09:00 12/17/16 08:59 Enteral Nutritional Formula (Boost Breeze Nutritional Drink) 1 box PM PO 11/16/16 21:00 12/16/16 20:59 Potassium Chloride/Sodium Chloride 1,000 ml @ 125 mls/hr Q8H IV 11/17/16 15:00 12/17/16 14:59 Ergocalciferol (Vitamin D Cap) 50,000 interunit Q7D PO 11/18/16 09:00 12/18/16 08:59 Cholecalciferol (Vitamin D Tab) 4,000 inter.unit QAM PO 11/18/16 09:00 12/18/16 08:59 Review of Systems Constitutional: + weight loss, + weakness, No fever ENT: No unusual epistaxis Respiratory: No cough, No hemoptysis Cardiovascular: + edema (bilateral pedal edema), No chest pain Abdomen: No pain, No nausea, No vomiting, No GI bleeding Genitourinary - Female: No dysuria, No hematuria, No vaginal bleeding Hematologic / Lymphatic: + abnormal bleeding/bruising Integumentary: No rash Physical Exam Date Time Temp Pulse Resp B/P (MAP) Pulse Ox O2 Delivery O2 Flow Rate FiO2 11/17/16 15:45 36.4 100 16 143/88 (106) 100 Nasal Cannula 2.0 11/17/16 12:00 Nasal Cannula 2.0 11/17/16 12:00 36.4 88 18 107/66 (80) 98 Nasal Cannula 2.0 11/17/16 08:00 36.4 85 18 103/65 (78) 97 Nasal Cannula 2.0 11/17/16 08:00 Nasal Cannula 2.0 11/17/16 04:00 Nasal Cannula 2.0 11/17/16 03:49 36.3 91 18 101/68 (79) 95 Nasal Cannula 11/17/16 00:06 36.3 104 20 118/68 (85) 11/17/16 00:00 Nasal Cannula 2.0 11/16/16 20:51 36.4 88 20 101/70 (80) 92 Nasal Cannula 2.0 11/16/16 20:25 36.4 83 18 98/66 (77) 96 Nasal Cannula 2.0 11/16/16 20:09 36.6 99 18 112/72 (85) 95 Nasal Cannula 2.0 11/16/16 20:00 Nasal Cannula 2.0 11/16/16 19:33 36.2 91 22 104/60 (75) 95 2.0 General Appearance: no apparent distress, + pertinent finding (Agitated easily but answers questions appropriately) Eyes: sclerae normal (anicteric) ENT: pharynx normal (no petechiae or bleeding) Respiratory/Chest: lungs clear Cardiovascular: regular rate, rhythm Abdomen/GI: non tender, soft, no organomegaly Extremities/Musculoskelatal: + pedal edema, + pertinent finding (swollen left elbow with purplish discoloration) Skin: no rash Laboratory Results Last 24 Hours Test 11/16/16 19:37 11/17/16 05:33 11/17/16 12:16 11/17/16 12:17 Stool Occult Blood NEGATIVE Prothrombin Time > 100.0 SECONDS Prothromb Time International Ratio > 8.0 Creatinine 0.52 mg/dl 0.62 mg/dl Est Creatinine Clear Calc Drug Dose 65.2 ml/min 55.7 ml/min Estimated GFR () 101.0 95.3 Estimated GFR (Non- 87.1 82.2 Vitamin B12 Level > 2000 pg/mL 25-Hydroxy Vitamin D Total 4.6 ng/ml Sodium Level 146 mmol/L Potassium Level 4.3 mmol/L Chloride Level 119 mmol/L Carbon Dioxide Level 17 mmol/L Anion Gap 10.0 mmol/L Blood Urea Nitrogen 24 mg/dl BUN/Creatinine Ratio 38.5 Random Glucose 80 mg/dl Calcium Level 7.2 mg/dl White Blood Count 14.36 K/uL Red Blood Count 4.85 M/uL Hemoglobin 9.3 g/dL Hematocrit 31.3 % Mean Corpuscular Volume 64.5 fL Mean Corpuscular Hemoglobin 19.2 pg Mean Corpuscular Hemoglobin Concent 29.7 g/dl RDW Standard Deviation 53.6 fL RDW Coefficient of Variation 22.9 % Platelet Count 315 K/uL Mean Platelet Volume 9.2 fL Nucleated RBC Absolute Count (auto) 0.08 K/uL Nucleated Red Blood Cells % 0.5 % Assessment & Plan Ms. Weller has a markedly prolonged PTT and PT. She does not have a heparinized access. It does not appear that she has consumed any surreptitious coumadin and this should have resolved with vitamin K replacement anyway. Coumarin, such as is found in commercial poisons, can have a prolonged effect such as this. She is profoundly malnourished, however, with an albumin of 1.3. She may have synthetic dysfunction due to her protein malnutrition. Her renal function is normal, making nephrotic syndrome unlikely. Her LFTs and bilirubin are normal, making shock liver less likely. She could also be in DIC and I would check a fibrinogen. We can order a PTT and PT mixing study. The fact that she has abnormalities in both pathways makes an acquired inhibitor unlikely ( factor X and prothrombin inhibitors are extraordinarily rare), though factor V inhibitors can be seen at times. More likely, however, she will correct in her mixing study, reflecting a factor deficiency. She has no evidence of microangiopathy or hemolysis to suggest TTP or HUS. Plus, her platelets are normal. She has a very microcytic anemia. Her ferritin is low-normal, but this could be spurious due to her inflammatory state. I would check a transferrin to evaluate her transferrin saturation. Interestingly, the only other hemoglobin I can find was from 2016 and she was microcytic then as well. It was not evaluated at that time due to patient refusal. If her iron stores are normal, we could consider a hemoglobinopathy panel to evaluate for thalassemias. Copper deficiency can lead to microcytosis, but it more commonly presents with a megaloblastic picture. Besides, usually other counts would be affected as well.
--- NOTE | 2016-11-17 20:03 | DIAGNOSTIC IMAGING REPORT ---
LEFT VENOUS DOPPLER UPR EXT UNI HISTORY: Pain. Edema. left arm is erythematous swollen COMPARISON STUDY: None. FINDINGS: Study is positive for nonocclusive thrombus within the left jugular, subclavian, and axillary veins. All remaining venous structures are unremarkable. IMPRESSION: Acute deep venous thrombosis left jugular, subclavian, and axillary veins. The above report was generated using voice recognition software. It may contain grammatical, syntax or spelling errors. Electronically signed by: Eddie Harrell M.D. 11/17/2016 8:02 PM Dictated Date/Time: 11/17/2016 8:01 PM
[2016-11-17] MEDS: BOOST BREEZE NUTRITION DRINK 1 BOX PO SCH (21:00)
[2016-11-17] MEDS ORDERED: ENOXAPARIN 1 MG/KG SQ SCH (23:00)
[2016-11-17] MEDS ORDERED: ENOXAPARIN 60 MG/0.6 ML SYR SQ ONE (23:15)
[2016-11-18] MEDS: IPRATROPIUM BROMIDE NEB SOLN 0.02% 2.5 ML VIAL INH SCH ×4 (01:40→19:33)
[2016-11-18] MEDS: LEVALBUTEROL 0.63MG/3 ML NEB INH SCH ×4 (01:40→19:33)
[2016-11-18] MEDS: CHOLECALCIFEROL 1000 INTER.UNIT TAB PO SCH (07:36)
[2016-11-18] MEDS: FERROUS SULFATE 325 MG TAB PO SCH (07:36)
[2016-11-18] MEDS: CITALOPRAM 20 MG TAB PO SCH (07:36)
[2016-11-18] MEDS: POLYETHYLENE (MIRALAX) 17 GM PACK PO SCH (07:41)
[2016-11-18] MEDS: BOOST PLUS VANILLA PO SCH ×2 (07:41)
[2016-11-18] MEDS: GABAPENTIN 100 MG CAP PO SCH ×2 (07:41→20:35)
[2016-11-18 07:46] VITALS: BP 120/83; PULSE 75; TEMP 36.6; O2SAT 90
[2016-11-18 08:10] LABS: HEMATOCRIT 29.5 % (37-47); MEAN CELL VOLUME 64.4 fL (80-100); MEAN CORPUSCULAR HEMOGLOBIN 19.4 pg (25-34); MEAN CORPUSCULAR HGB CONC 30.2 g/dl (32-36); PLATELET COUNT 270 K/uL (130-400); RED BLOOD COUNT 4.58 M/uL (4.2-5.4); WHITE BLOOD COUNT 12.39 K/uL (4.8-10.8)
[2016-11-18 08:40] LABS: CREATININE 0.63 mg/dl (0.60-1.20)
[2016-11-18 08:47] LABS: PROTHROMBIN TIME (PATIENT) > 100.0 SECONDS (9.0-12.0)
[2016-11-18 08:48] LABS: INR > 8.0 (0.9-1.1)
[2016-11-18] MEDS ORDERED: ENOXAPARIN 60 MG/0.6 ML SYR SQ SCH (09:00)
[2016-11-18] MEDS ORDERED: ERGOCALCIFEROL 50,000 INTER.UNIT CAP PO SCH (09:00)
[2016-11-18 09:26] LABS: PARTIAL THROMBOPLASTIN RATIO > 11.0
[2016-11-18 15:37] VITALS: BP 146/85; PULSE 88; TEMP 36.3; O2SAT 88
--- NOTE | 2016-11-18 15:51 | Hematology/Oncology Prog Note ---
Hematology/Onc Progress Note Date of Service Nov 18, 2016. Diagnoses Coagulopathy Profound protein malnutrition Upper extremity VTE Medications Medications Administered Medications (Trade) Dose Ordered Sig/Elijah Route Start Time Stop Time Status Last Admin Dose Admin Sodium Chloride 1,000 ml @ 999 mls/hr Q1H1M STAT IV 11/15/16 16:12 11/15/16 17:12 DC 11/15/16 17:12 999 MLS/HR Haloperidol Lactate (Haldol Inj) 2.5 mg NOW STAT IV 11/15/16 16:27 11/15/16 16:28 DC 11/15/16 17:12 2.5 MG Lorazepam (Ativan Inj) 0.25 mg NOW STAT IV 11/15/16 16:41 11/15/16 16:42 DC 11/15/16 17:12 0.25 MG Sodium Chloride 1,000 ml @ 999 mls/hr Q1H1M STAT IV 11/15/16 17:09 11/15/16 18:09 DC 11/15/16 17:19 999 MLS/HR Cefepime HCl 1000 mg/Dextrose 111.3 ml @ 200 mls/hr NOW STAT IV 11/15/16 17:09 11/15/16 17:42 DC 11/15/16 17:54 200 MLS/HR Vancomycin HCl 1250 mg/Sodium Chloride 525 ml @ 200 mls/hr ONE STAT IV 11/15/16 17:09 11/15/16 19:46 DC 11/15/16 17:54 200 MLS/HR Citalopram Hydrobromide (celeXA TAB) 5 mg DAILY PO 11/16/16 09:00 12/16/16 08:59 11/18/16 07:36 5 MG Ferrous Sulfate (Feosol Tab) 325 mg DAILY PO 11/16/16 09:00 12/16/16 08:59 11/18/16 07:36 325 MG Sodium Chloride 1,000 ml @ 80 mls/hr [id number] IV 11/15/16 19:30 11/16/16 14:21 DC 11/16/16 07:35 80 MLS/HR Ipratropium [place] (Atrovent 0.02% 0.5MG/2.5ML Neb) 0.5 mg Q6R INH 11/15/16 21:00 12/15/16 20:59 11/16/16 07:31 0.5 MG Levalbuterol (Xopenex 0.63 Mg/ 3 Ml Neb) 0.63 mg Q6R INH 11/15/16 21:00 12/15/16 20:59 11/16/16 07:31 0.63 MG Phytonadione 10 mg/Sodium Chloride 51 ml @ 102 mls/hr ONE ONCE IV 11/15/16 21:15 11/15/16 21:44 DC 11/15/16 21:42 102 MLS/HR Sodium Chloride 1,000 ml @ 999 mls/hr Q1H1M STAT IV 11/16/16 01:43 11/16/16 02:43 DC 11/16/16 02:00 999 MLS/HR Phytonadione 10 mg/Sodium Chloride 51 ml @ 102 mls/hr ONE STAT IV 11/16/16 05:43 11/16/16 06:12 DC 11/16/16 05:58 102 MLS/HR Magnesium Sulfate 1 gm/Prmx 100 ml @ 100 mls/hr TODAY@0600,0700 IV 11/16/16 06:00 11/16/16 07:59 DC 11/16/16 07:35 100 MLS/HR Sodium Chloride 1,000 ml @ 999 mls/hr Q1H1M STAT IV 11/16/16 06:16 11/16/16 07:16 DC 11/16/16 06:18 999 MLS/HR Potassium Chloride/Sodium Chloride 1,000 ml @ 150 mls/hr Q6H40M IV 11/16/16 15:00 11/17/16 14:14 DC 11/17/16 10:45 150 MLS/HR Vancomycin HCl 1250 mg/Sodium Chloride 275 ml @ 125 mls/hr TODAY@1615 ONCE IV 11/16/16 16:15 11/16/16 18:26 DC 11/16/16 16:47 125 MLS/HR Vancomycin HCl 750 mg/Sodium Chloride 265 ml @ 125 mls/hr Q14H IV 11/17/16 06:00 11/17/16 12:17 DC 11/17/16 05:06 125 MLS/HR Phytonadione 10 mg/Sodium Chloride 51 ml @ 102 mls/hr TODAY@1930 ONCE IV 11/16/16 19:30 11/16/16 19:59 DC 11/16/16 19:58 102 MLS/HR Ergocalciferol (Vitamin D Cap) 50,000 interunit Q7D PO 11/18/16 09:00 12/18/16 08:59 11/18/16 07:36 50,000 INTERUNIT Cholecalciferol (Vitamin D Tab) 4,000 inter.unit QAM PO 11/18/16 09:00 12/18/16 08:59 11/18/16 07:36 4,000 INTER.UNIT Subjective Ms. Weller refused to comply with an exam today. She screamed hysterically to be left alone. I told her that refusing treatment could result in her and she replied "good, let me ." Review of Systems: Did not comply. Vital Signs Vital Signs Past 12 Hours Date Time Temp Pulse Resp B/P (MAP) Pulse Ox O2 Delivery O2 Flow Rate FiO2 11/18/16 08:16 Nasal Cannula 1.0 11/18/16 07:46 36.6 75 16 120/83 (95) 90 Room Air Physical Exam Refused. Laboratory Last 24 Hours Test 11/18/16 05:33 11/18/16 07:24 11/18/16 09:46 11/18/16 09:50 Transferrin 108 mg/dl White Blood Count 12.39 K/uL Red Blood Count 4.58 M/uL Hemoglobin 8.9 g/dL Hematocrit 29.5 % Mean Corpuscular Volume 64.4 fL Mean Corpuscular Hemoglobin 19.4 pg Mean Corpuscular Hemoglobin Concent 30.2 g/dl RDW Standard Deviation 53.6 fL RDW Coefficient of Variation 23.1 % Platelet Count 270 K/uL Prothrombin Time > 100.0 SECONDS Prothromb Time International Ratio > 8.0 Activated Partial Thromboplast Time > 300.0 SECONDS Partial Thromboplastin Ratio > 11.0 Creatinine 0.63 mg/dl Est Creatinine Clear Calc Drug Dose 54.8 ml/min Estimated GFR () 94.8 Estimated GFR (Non- 81.8 Transferrin % Saturation % Assessment & Plan Ms. Weller is profoundly coagulopathic, with an unmeasurable PTT and PT. She also has a large left upper extremity DVT. This combination raises the possibility of DIC. She was transiently in shock, which can induce DIC, but she does not have any evidence of liver injury, which is usually the cause of DIC in patients with shock. She also does not appear to be infected. However, she is profoundly malnourished due to refusal to eat. She has a quite low albumin and low levels of other serum proteins, like lipase and transferrin. These patients can also be deficient in clotting factors, which could explain her unmeasurable PTT and PT. The fact that neither improved with 30 mg of vitamin K supports this explanation. It would be reasonable to suspect she is also not producing anticoagulant factors, like Protein C and S, thus creating a phenomenon similar to DIC. This might be another explanation for her UE VTE. In patients with VTE in DIC, there is a role for continuous infusion unfractionated heparin, especially if there is no hemorrhage associated with the DIC. The goal is either a therapeutic PTT or, if the PTT is already elevated , 1.5-2 times the current baseline. Her PTT is unmeasurably high, so I would not suggest IV heparin at this time. She also is refusing essentially all interventions at this time anyway. This makes further workup and management difficult. I asked her to let us help her and her refusal was both emphatic and profane. At this point, there is not much else we can do besides supportive care. If she allows further laboratory testing , I would re-order the fibrinogen (it must be run within 2 hours of blood draw) , as she might require cryoprecipitate. She is not bleeding at this time, so I would not give her blood products (I doubt she would accept them anyway). I would also consider reaching out to her family for assistance and to discuss the possibility that this may be a terminal event.
--- NOTE | 2016-11-18 16:13 | Family Medicine Progress Note ---
Progress Note Date of Service Nov 18, 2016. Subjective Pt evaluation today including: conversation w/ patient, physical exam, chart review, lab review, review of inpatient medication list Pain: No pain reported PO Intake: Tolerating PO intake Voiding: no voiding problems Ms. Weller was slightly more cooperative and calm today. She denies any pain, specifically in her left arm. She also denies SOB, chest or abdominal pain, but would not answer any further questions. Constitutional: No fever Cardiovascular: No chest pain Abdomen: No pain All Other Systems: Reviewed and Negative Medications Current Inpatient Medications Medications (Trade) Dose Ordered Sig/Elijah Route Start Time Stop Time Status Last Admin Dose Admin Bisacodyl (Dulcolax Supp) 10 mg DAILY PRN NE 11/15/16 18:30 12/15/16 18:29 Gabapentin (Neurontin Cap) 100 mg Q12 PO 11/15/16 21:00 12/15/16 20:59 Citalopram Hydrobromide (celeXA TAB) 5 mg DAILY PO 11/16/16 09:00 12/16/16 08:59 11/18/16 07:36 5 MG Ferrous Sulfate (Feosol Tab) 325 mg DAILY PO 11/16/16 09:00 12/16/16 08:59 11/18/16 07:36 325 MG Miscellaneous Information (Order Awaiting Action) 1 ea QS N/A 11/16/16 00:00 12/16/16 00:00 Miscellaneous Information (Order Awaiting Action) 1 ea QS N/A 11/16/16 00:00 12/16/16 00:00 Polyethylene (Miralax Powder Packet) 17 gm DAILY PO 11/16/16 09:00 12/16/16 08:59 Acetaminophen (Tylenol Tab) 650 mg Q4H PRN PO 11/15/16 18:30 12/15/16 18:29 Al Hydrox/Mg Hydrox/Simethicone (Maalox Max Susp) 15 ml Q4H PRN PO 11/15/16 18:30 12/15/16 18:29 Magnesium Hydroxide (Milk Of Magnesia Susp) 30 ml Q12H PRN PO 11/15/16 18:30 12/15/16 18:29 Polyethylene (Miralax Powder Packet) 17 gm DAILY PRN PO 11/15/16 18:30 12/15/16 18:29 Ipratropium [place] (Atrovent 0.02% 0.5MG/2.5ML Neb) 0.5 mg Q6R INH 11/15/16 21:00 12/15/16 20:59 11/16/16 07:31 0.5 MG Levalbuterol (Xopenex 0.63 Mg/ 3 Ml Neb) 0.63 mg Q6R INH 11/15/16 21:00 12/15/16 20:59 11/16/16 07:31 0.63 MG Enteral Nutritional Formula (Boost Plus Vanilla) 1 can DAILY PO 11/17/16 09:00 12/17/16 08:59 Enteral Nutritional Formula (Boost Breeze Nutritional Drink) 1 box PM PO 11/16/16 21:00 12/16/16 20:59 Ergocalciferol (Vitamin D Cap) 50,000 interunit Q7D PO 11/18/16 09:00 12/18/16 08:59 11/18/16 07:36 50,000 INTERUNIT Cholecalciferol (Vitamin D Tab) 4,000 inter.unit QAM PO 11/18/16 09:00 12/18/16 08:59 11/18/16 07:36 4,000 INTER.UNIT Enoxaparin Sodium (Lovenox Inj) 50 mg Q12@0900,2100 SQ 11/18/16 09:00 12/18/16 08:59 Objective Vital Signs Date Time Temp Pulse Resp B/P (MAP) Pulse Ox O2 Delivery O2 Flow Rate FiO2 11/18/16 08:16 Nasal Cannula 1.0 11/18/16 07:46 36.6 75 16 120/83 (95) 90 Room Air 11/18/16 00:00 Nasal Cannula 1.0 11/17/16 22:55 36.6 112 16 101/64 (76) 92 Nasal Cannula 1.0 11/17/16 19:06 36.5 101 18 102/65 (77) 98 Room Air 11/17/16 18:22 36.4 100 16 100 2.0 11/17/16 16:00 Nasal Cannula 2.0 11/17/16 15:45 36.4 100 16 143/88 (106) 100 Nasal Cannula 2.0 11/17/16 12:00 Nasal Cannula 2.0 11/17/16 12:00 36.4 88 18 107/66 (80) 98 Nasal Cannula 2.0 Physical Exam General Appearance: WD/WN, no apparent distress Respiratory/Chest: chest non-tender, lungs clear, normal breath sounds, no respiratory distress, no accessory muscle use Cardiovascular: regular rate, rhythm, no gallop, no JVD, no murmur Extremities: non-tender, no calf tenderness, + pedal edema, + pertinent finding (generalized edema of extremities, 2+ pitting) Skin: + pertinent finding (left arm is swollen and erythematous. Right arm is as well, but to a lesser extent) Laboratory Results 11/18/16 07:24 11/17/16 12:16 11/18/16 07:24 Test 11/17/16 12:16 11/17/16 12:17 11/18/16 07:24 Anion Gap 10.0 mmol/L (3-11) BUN/Creatinine Ratio 38.5 (10-20) Calcium Level 7.2 mg/dl (8.5-10.1) Mean Platelet Volume 9.2 fL (7.4-10.4) Nucleated RBC Absolute Count (auto) 0.08 K/uL (0-0) Nucleated Red Blood Cells % 0.5 % Red Blood Count 4.58 M/uL (4.2-5.4) Mean Corpuscular Volume 64.4 fL (80-100) Mean Corpuscular Hemoglobin 19.4 pg (25-34) Mean Corpuscular Hemoglobin Concent 30.2 g/dl (32-36) RDW Standard Deviation 53.6 fL (36.4-46.3) RDW Coefficient of Variation 23.1 % (11.5-14.5) Prothrombin Time > 100.0 SECONDS Prothromb Time International Ratio > 8.0 (0.9-1.1) Activated Partial Thromboplast Time > 300.0 SECONDS Partial Thromboplastin Ratio > 11.0 Est Creatinine Clear Calc Drug Dose 54.8 ml/min Estimated GFR () 94.8 Estimated GFR (Non- 81.8 Assessment and Plan Ms. Weller is an 86 year old lady with a history of schizophrenia, COPD and HTN who presented to [facility] due to altered mental status, not eating & not taking her meds Mental Status Alteration - likely due to hypovolemic shock - pt was hypotensive and tachycardic on arrival - held fluids as becoming hypernatremic & blood pressure normal at 120/83 Elevated WBC - WBC are 12.39 today, overall decreasing - will continue to monitor, but no obvious source of infection - One blood culture came back positive for gram positive cocci - the other one was negative - likely contamination. D/c vancomycin - UA clear Elevated INR/APTT - Today's INR was still >8 and APTT>300, despite 30mg of IV vitamin K - Normal LFTs, not on coumadin or heparin, INR one year ago was 1 - will continue to monitor Swollen & erythematous left arm - US of left upper extremity shows acute DVT of left jugular, subclavian and axillary veins - APTT >300, INR >8 - ?DIC due to severe protein malnutrition vs. malignancy - ordered fibrin split products, fibrinogen, D-dimer to assess, however Ms. Weller would not allow for any further blood draws - cannot treat with heparin infusion given raised APTT - continuing to monitor - will speak to family tomorrow regarding further treatment vs. comfort measures Low Vit D - supplement with 50,000 Drisdol weekly and 4,000 units of Vitamin D daily - likely due to malnourishment - she refused to take these tablets last night but had them this morning as they were crushed and mixed with her food VTE Prophylaxis - already overanticoagulated Code - DNR Disposition - remains on med/surg Resident Physician Supervision Note: I interviewed and examined the patient. Discussed with Dr. Gordillo and agree with findings and plan as documented in the note. Any exceptions or clarifications are listed here: None Documented By: Jared Starkey denies pain. angrily refuses much other hPI. ROS otherwise unobtainable except for as above d/w hematology extensively vitals noted nad breathing unlabored, L arm swollen, diffuse edema dehydration/poor PO intake/severe protein/calorie malnutrition/hypotension corrected w IVF but now subsequent anasarca from low nutritional status/UE DVT/ severe coagulopathy ---all signs appearing to point towards severe malnutrition +/- slow DIC process possibly from malnutrition/hypoperfusion. ---await further w/u, may need to d/w pt regarding nutritional support vs comfort measures Resident Tracking Resident Involvement: Resident Care Provided Care Provided: Adult Hospital Medicine
[2016-11-18 16:59] LABS: PAT:SHPL IMM PT 12.2 SECONDS; SHPL IMMED PT 11.9 SECONDS
[2016-11-18 17:00] LABS: MIXING STUDY INTERPRET APTT APTT CORRECTED; MIXING STUDY INTERPRET PT PT CORRECTED; PAT:SHPL 37 PT 11.9 SECONDS; PAT:SHPL 37 PTT 31.3 SECONDS; PAT:SHPL IMMED PTT 31.3 SECONDS; SHPL 37 PT 11.7 SECONDS; SHPL 37 PTT 27.8 SECONDS; SHPL IMMED PTT 28.1 SECONDS
[2016-11-18] MEDS: BOOST BREEZE NUTRITION DRINK 1 BOX PO SCH (20:34)
[2016-11-18 23:05] VITALS: BP 104/65; PULSE 87; TEMP 36.3; O2SAT 88
[2016-11-19] MEDS: IPRATROPIUM BROMIDE NEB SOLN 0.02% 2.5 ML VIAL INH SCH ×4 (01:50→19:27)
[2016-11-19] MEDS: LEVALBUTEROL 0.63MG/3 ML NEB INH SCH ×4 (01:51→19:27)
[2016-11-19 07:11] VITALS: BP 95/66; PULSE 75; TEMP 36.3; O2SAT 91
[2016-11-19] MEDS: BOOST PLUS VANILLA PO SCH ×2 (08:02)
[2016-11-19] MEDS: CITALOPRAM 20 MG TAB PO SCH (08:02)
[2016-11-19] MEDS: CHOLECALCIFEROL 1000 INTER.UNIT TAB PO SCH (08:03)
[2016-11-19] MEDS: FERROUS SULFATE 325 MG TAB PO SCH (08:03)
[2016-11-19] MEDS: GABAPENTIN 100 MG CAP PO SCH ×2 (08:03→21:00)
[2016-11-19] MEDS: POLYETHYLENE (MIRALAX) 17 GM PACK PO SCH (08:03)
--- NOTE | 2016-11-19 13:56 | Family Medicine Progress Note ---
Progress Note Date of Service Nov 19, 2016. Subjective Pt evaluation today including: conversation w/ patient, chart review, lab review, review of inpatient medication list Pain: No pain reported PO Intake: Tolerating PO intake Voiding: no voiding problems Ms. Hernandez was unwilling to cooperate with either a history or physical examination today. She began screaming profanities as soon as I entered the room and would not permit any further conversation or questioning. Cardiovascular: No chest pain Abdomen: No pain Medications Current Inpatient Medications Medications (Trade) Dose Ordered Sig/Elijah Route Start Time Stop Time Status Last Admin Dose Admin Bisacodyl (Dulcolax Supp) 10 mg DAILY PRN [place] 11/15/16 18:30 12/15/16 18:29 Gabapentin (Neurontin Cap) 100 mg Q12 PO 11/15/16 21:00 12/15/16 20:59 Citalopram Hydrobromide (celeXA TAB) 5 mg DAILY PO 11/16/16 09:00 12/16/16 08:59 11/18/16 07:36 5 MG Ferrous Sulfate (Feosol Tab) 325 mg DAILY PO 11/16/16 09:00 12/16/16 08:59 11/18/16 07:36 325 MG Miscellaneous Information (Order Awaiting Action) 1 ea QS N/A 11/16/16 00:00 12/16/16 00:00 Miscellaneous Information (Order Awaiting Action) 1 ea QS N/A 11/16/16 00:00 12/16/16 00:00 Polyethylene (Miralax Powder Packet) 17 gm DAILY PO 11/16/16 09:00 12/16/16 08:59 Acetaminophen (Tylenol Tab) 650 mg Q4H PRN PO 11/15/16 18:30 12/15/16 18:29 Al Hydrox/Mg Hydrox/Simethicone (Maalox Max Susp) 15 ml Q4H PRN PO 11/15/16 18:30 12/15/16 18:29 Magnesium Hydroxide (Milk Of Magnesia Susp) 30 ml Q12H PRN PO 11/15/16 18:30 12/15/16 18:29 Polyethylene (Miralax Powder Packet) 17 gm DAILY PRN PO 11/15/16 18:30 12/15/16 18:29 Ipratropium [place] (Atrovent 0.02% 0.5MG/2.5ML Neb) 0.5 mg Q6R INH 11/15/16 21:00 12/15/16 20:59 11/16/16 07:31 0.5 MG Levalbuterol (Xopenex 0.63 Mg/ 3 Ml Neb) 0.63 mg Q6R INH 11/15/16 21:00 12/15/16 20:59 11/16/16 07:31 0.63 MG Enteral Nutritional Formula (Boost Plus Vanilla) 1 can DAILY PO 11/17/16 09:00 12/17/16 08:59 Enteral Nutritional Formula (Boost Breeze Nutritional Drink) 1 box PM PO 11/16/16 21:00 12/16/16 20:59 Ergocalciferol (Vitamin D Cap) 50,000 interunit Q7D PO 11/18/16 09:00 12/18/16 08:59 11/18/16 07:36 50,000 INTERUNIT Cholecalciferol (Vitamin D Tab) 4,000 inter.unit QAM PO 11/18/16 09:00 12/18/16 08:59 11/18/16 07:36 4,000 INTER.UNIT Objective Vital Signs Date Time Temp Pulse Resp B/P (MAP) Pulse Ox O2 Delivery O2 Flow Rate FiO2 11/19/16 08:31 Nasal Cannula 2.0 11/19/16 07:11 36.3 75 20 95/66 (76) 91 Room Air 11/19/16 00:00 Nasal Cannula 1.0 11/18/16 23:05 36.3 87 18 104/65 (78) 88 Room Air 11/18/16 20:00 Nasal Cannula 1.0 11/18/16 16:00 Nasal Cannula 1.0 11/18/16 15:37 36.3 88 18 146/85 (105) 88 Room Air 1.0 Physical Exam General Appearance: WD/WN, no apparent distress Respiratory/Chest: no respiratory distress, no accessory muscle use Extremities: + pertinent finding (generalized edema of the extremities) Assessment and Plan Ms. Hernandez is an 86 year old lady with a history of schizophrenia, COPD and HTN who presented to [facility] due to altered mental status, not eating & not taking her meds Mental Status Alteration - resolved Elevated WBC - WBC were 12.39 yesterday and overall decreasing since her admission - she will not allow for further examination or blood tests - UA clear Elevated INR/APTT - Today's INR was still >8 and APTT>300, despite 30mg of IV vitamin K - Normal LFTs, not on coumadin or heparin, INR one year ago was 1 - she will not allow for further monitoring Swollen & erythematous left arm - US of left upper extremity shows acute DVT of left jugular, subclavian and axillary veins - APTT >300, INR >8 - likely DIC due to severe malnutrition - mixing study yesterday showed correction of PT and PTT times - no family contacts - [place]. Consulted hospital social worker & psych for end of life planning & second opinion of capacity Low Vit D - supplement with 50,000 Drisdol weekly and 4,000 units of Vitamin D daily VTE Prophylaxis - already overanticoagulated Code - DNR Disposition - remains on med/surg Resident Physician Supervision Note: I interviewed and examined the patient. Discussed with [Duy] and agree with findings and plan as documented in the note. Any exceptions or clarifications are listed here: [None] Documented By: Jared Starkey very little HPI or ROS obtainable as she yells at me to get out. with repeated questioning she does deny complaints in between yelling at me vitals noted nad except for hostility. LUE edema apperas unchanged, facial edema actually appears somewhat improved. seems to have probably eaten some hypotension appears to have been hypovolemic shock from poor intake and distributive from terribly low nutritional status coagulopathy most likley is from terribly low nutritional status as well LUE DVT low risk for significant PE and with PTT and PT undetectably high risks/ benefits favors holding true anticoagulation i harbor serious concern that ms hernandez is showing a decline from acute on chronic malnutrition, predominantly brought on by her refusal to eat/drink well. i am concerned that it would likely take months of good nutrition to improve her situation (if improvement is even possible at this point) and that she is exceedingly high risk for mounting complications due to her exceedingly frail state. at this point end of life decision making vs more invasive nutrition needs to be entertained. 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 , i do believe she has had capacity to make decisions, and has understood risks/ benefits of her decisions to refuse decisions (for example when i first met her and saw she had signfiicnat anemia that had not been further worked up or even followed, we had a detailed discussion of how not evaluating/treating, or even following could lead to significant harm or , and she rationally expressed understanding and declined any further workup/treatment at that time) -- currently it is more difficult to gauge capacity due to her hostility, although she has also shown that type of demeanor over the last six months. it is hard to say that it is due to her psychosis vs just due to truly wanting to be left alone, because to the best of my knowledge she has generally refused treatment for her psychosis for as long as i've taken care of her; however, it is possible that her overlying psychosis is causing her to not understand her current circumstances well enough to make sound decisions. -again to the best of my assessment i do think she is capable of understanding and making rational decisions, but would like a second opinion on this (with psychosis being the reason for concern, will be asking psychiatry for second opinion on capacity) - especially because she appears to be at the brink of needing to have a major focus to the direction of her care (ie comfort measures vs invasive feeding) and i suspect heavily that she'll say that she doesn't want anything done -if psychiatry assessment is contradictory to mine, and they believe after assessment that her psychosis is clouding her capacity, her refusal to take psych meds would therefore be causing her imminent harm - from an ethics committee chair perspective i therefore would feel it ethical to allow a trial of enforced compliance with her psych meds (again i don't believe this will be the case; and also if psychiatry does believe that her psychosis is clouding capacity, i would also then ask for further input from other members of the ethics committe before initiating any enforced administration of psych meds) -her POA is legal guardian listed in EMR - son is also listed but her legal guardian is separate from family - R1 tried to call yesterday to discuss these matters and it apperas to be a government office - making it likely that her decision maker lies within the office of the aging -- therefore will need to ensure they have as much information about her situation, capacity, and prognosis as possible to allow for lead-time on decision making -should an aggressive course of action be recommended, she would like need enforcement of psych meds and ?PEG, TPN, both? to address her nutritional status (and then careful inpt observation for refeeding syndrome) ----in conclusion, i suspect / believe she does have capacity, and therefore i do believe that discussions (as best she will allow) should be driven by her expressed wishes, but due to the confounding factor of her psychosis, and her legal guardian being as it is, the above course of action should be undertaken to allow for careful, ethical decision making in this difficult situation Resident Tracking Resident Involvement: Resident Care Provided Care Provided: Adult Hospital Medicine
[2016-11-19 15:19] VITALS: BP 120/62; PULSE 88; TEMP 36.3; O2SAT 93
[2016-11-19] MEDS: BOOST BREEZE NUTRITION DRINK 1 BOX PO SCH (21:00)
[2016-11-20] MEDS: LEVALBUTEROL 0.63MG/3 ML NEB INH SCH ×3 (01:26→15:00)
[2016-11-20] MEDS: IPRATROPIUM BROMIDE NEB SOLN 0.02% 2.5 ML VIAL INH SCH ×3 (01:26→15:00)
[2016-11-20] MEDS: GABAPENTIN 100 MG CAP PO SCH (09:00)
[2016-11-20] MEDS: CITALOPRAM 20 MG TAB PO SCH (09:00)
[2016-11-20] MEDS: POLYETHYLENE (MIRALAX) 17 GM PACK PO SCH (09:00)
[2016-11-20] MEDS: CHOLECALCIFEROL 1000 INTER.UNIT TAB PO SCH (09:00)
[2016-11-20] MEDS: FERROUS SULFATE 325 MG TAB PO SCH (09:00)
--- NOTE | 2016-11-20 09:20 | Family Medicine Progress Note ---
Progress Note Date of Service Nov 20, 2016. Subjective Pt evaluation today including: conversation w/ patient, physical exam Pain: Denies pain Voiding: no voiding problems Patient becames extremely upset easily Patient is denying any pain When offered treatment for elevated coags, patient becomes extremely upset and say "Get the hell out" and threatened to spill hot coffee Lab unable to get blood this morning, patient refusing to have IV placed Constitutional: No fever, No chills, No sweats Eyes: No worsening of vision, No eye pain, No redness ENT: No nasal symptoms, No sore throat Respiratory: No cough, No sputum, No wheezing Cardiovascular: No chest pain, No orthopnea, No palpitations Musculoskeletal: No joint pain, No muscle pain Female : No dysuria, No urinary frequency, No hematuria Neurologic: No weakness, No numbness/tingling, No vertigo Endo: No fatigue, No excessive thirst, No excessive urination Skin: No rash, No itch, No color change All Other Systems: Reviewed and Negative Medications Current Inpatient Medications Medications (Trade) Dose Ordered Sig/Elijah Route Start Time Stop Time Status Last Admin Dose Admin Bisacodyl (Dulcolax Supp) 10 mg DAILY PRN [place] 11/15/16 18:30 12/15/16 18:29 Gabapentin (Neurontin Cap) 100 mg Q12 PO 11/15/16 21:00 12/15/16 20:59 Citalopram Hydrobromide (celeXA TAB) 5 mg DAILY PO 11/16/16 09:00 12/16/16 08:59 11/18/16 07:36 5 MG Ferrous Sulfate (Feosol Tab) 325 mg DAILY PO 11/16/16 09:00 12/16/16 08:59 11/18/16 07:36 325 MG Miscellaneous Information (Order Awaiting Action) 1 ea QS N/A 11/16/16 00:00 12/16/16 00:00 Miscellaneous Information (Order Awaiting Action) 1 ea QS N/A 11/16/16 00:00 12/16/16 00:00 Polyethylene (Miralax Powder Packet) 17 gm DAILY PO 11/16/16 09:00 12/16/16 08:59 Acetaminophen (Tylenol Tab) 650 mg Q4H PRN PO 11/15/16 18:30 12/15/16 18:29 Al Hydrox/Mg Hydrox/Simethicone (Maalox Max Susp) 15 ml Q4H PRN PO 11/15/16 18:30 12/15/16 18:29 Magnesium Hydroxide (Milk Of Magnesia Susp) 30 ml Q12H PRN PO 11/15/16 18:30 12/15/16 18:29 Polyethylene (Miralax Powder Packet) 17 gm DAILY PRN PO 11/15/16 18:30 12/15/16 18:29 Ipratropium [place] (Atrovent 0.02% 0.5MG/2.5ML Neb) 0.5 mg Q6R INH 11/15/16 21:00 12/15/16 20:59 11/16/16 07:31 0.5 MG Levalbuterol (Xopenex 0.63 Mg/ 3 Ml Neb) 0.63 mg Q6R INH 11/15/16 21:00 12/15/16 20:59 11/16/16 07:31 0.63 MG Enteral Nutritional Formula (Boost Plus Vanilla) 1 can DAILY PO 11/17/16 09:00 12/17/16 08:59 Enteral Nutritional Formula (Boost Breeze Nutritional Drink) 1 box PM PO 11/16/16 21:00 12/16/16 20:59 Ergocalciferol (Vitamin D Cap) 50,000 interunit Q7D PO 11/18/16 09:00 12/18/16 08:59 11/18/16 07:36 50,000 INTERUNIT Cholecalciferol (Vitamin D Tab) 4,000 inter.unit QAM PO 11/18/16 09:00 12/18/16 08:59 11/18/16 07:36 4,000 INTER.UNIT Objective Vital Signs Date Time Temp Pulse Resp B/P (MAP) Pulse Ox O2 Delivery O2 Flow Rate FiO2 11/20/16 00:00 Room Air 11/19/16 16:00 Room Air 11/19/16 15:19 36.3 88 20 120/62 (81) 93 Room Air Physical Exam General Appearance: + moderate distress (easily angered by questioning), + thin Eyes: normal inspection, EOMI ENT: hearing grossly normal, pharynx normal Neck: supple, no adenopathy, no JVD Respiratory/Chest: lungs clear, no respiratory distress Cardiovascular: regular rate, rhythm, no gallop, no murmur Abdomen: normal bowel sounds, non tender, soft Extremities: non-tender Neurologic/Psychiatric: oriented x 3 Skin: normal color, warm/dry, no rash Lymphatic: no adenopathy Laboratory Results Last 24 Hours Test 11/20/16 04:44 11/20/16 06:28 Assessment and Plan Discharge planning: uncertain
[2016-11-20] MEDS ORDERED: PHYTONADIONE 5 MG TAB PO ONE (09:43)
--- NOTE | 2016-11-20 10:08 | Psychiatric Progress Notes ---
Psychiatric Progress Note Date of Service Nov 20, 2016. Notes Case reviewed with Dr. Starkey yesterday. Attempted to see patient today but she did not tolerate questions. Attempted to contact guardians at [facility], LM as little to no psychiatric history on chart. Patient missed last dose of Risperdal consta. She refuses care and will yell for people to leave but is calm when left alone and per primary team hasn't been appearing to be responding to internal stimuli or making suicidal statements. PO intake historically poor and it is believed that she has likely irreversible malnutrition with coagulopathy. Her advanced directive outlines that she would only want comfort measures at this point, primary team wanted to explore if residual treatable psych condition that would improve remaining quality of life to guide decision making around end of life care as desire to proceed as ethically as possible. I suspect that patient has already been deemed incompetent so capacity is not the most relevant question so aim would be to work with guardian (I assume ad lietum) on most reasonable comfort measures that would support her previously stated wishes. When more information is available re: past psych history, will likely d/c Celexa. Other options PO could be Zyprexa zydis, but again still has some Risperdal on board and unclear any active psychosis other than perhaps her longstanding baseline paranoia (though seems like more resistance to care). She was brought her on 302 warrant by [facility] so primary team will need to disposition that as not appropriate for inpatient psychiatric care.
[2016-11-20] MEDS: BOOST PLUS VANILLA PO SCH ×2 (10:42)
--- NOTE | 2016-11-20 14:42 | Procedure Note ---
Procedure Note Date of Service Nov 20, 2016. Procedure Note I spoke with Silviaprashanth Gamez from [facility] at approximately 13:30 today. Mrs. Chavarria is the designated decision-maker for Mrs. Galvez. I explained the ongoing issue of the patient's refusal to accept treatment and her inability to make informed decisions for herself at this time. I informed that the current acute issue is the elevated INR and aPTT, and the accompanied risk of bleeding. She is refusing all medications at this time. I reviewed the POLST form, which Mrs. Gamez informed me was signed in 2015. The POLST states that the patient would wish for comfort measures. I have explained that without treatment, there is a risk of from a major bleed. Mrs. Chavarria acknowledged understanding and provided consent for place the patient on comfort care at this time and have her discharged back to [facility].
--- NOTE | 2016-11-20 14:50 | Discharge Instructions ---
Discharge Instructions Date of Service Nov 20, 2016. Admission Reason for Admission: Change In Mental Status Discharge Discharge Diagnosis / Problem: Elevated INR, elevated aPTT; refusal for medical intervention Discharge Goals Goal(s): Decrease discomfort Activity Recommendations Activity Limitations: resume your previous activity Lifting Limitations: none . Instructions / Follow-Up Instructions / Follow-Up You came to the ED because you were refusing to eat or take your medications. In the hospital, were found to have a high INR and aPTT. You have a high risk of bleeding, but refused to allow us to treat you as necessary. We reviewed you POLST form, which stated you would want to be made comfort measures. We also spoke with your substitute decision-maker, who also agreed to focus on your comfort. We will discharged you back to [facility]. We have not made any changes to your medications. You can eat as per your appetite and as tolerated. It was a pleasure to be involved in your care and we wish you all the best. Current Hospital Diet Patient's current hospital diet: Regular Diet Discharge Diet Recommended Diet: Regular Diet Diet Texture: Pureed (blended smooth) Pending Studies Studies pending at discharge: no Medical Emergencies . Who to Call and When: Medical Emergencies: If at any time you feel your situation is an emergency, please call 911 immediately. . Non-Emergent Contact Non-Emergency issues call your: Primary Care Provider Call Non-Emergent contact if: your pain is not controlled . . "Provider Documentation" section prepared by Anoop Carranza. . VTE Core Measure Inpt VTE Proph given/why not?: Contraindicated (elevated INR and aPTT)
--- NOTE | 2016-11-20 15:06 | Discharge Summary ---
Discharge Summary Date of Service Nov 20, 2016. (Anoop Carranza MD) Discharge Summary Admission Date: Nov 15, 2016 at 18:30 Discharge Date: Nov 20, 2016 Discharge Disposition: correction facility Principal Diagnosis: elevated INR, elevated aPTT, left upper extremity DVT Problems/Secondary Diagnoses: Paranoid Schizophrenia, Refusal to accept medical treatment Procedures: LEFT VENOUS DOPPLER UPR EXT UNI HISTORY: Pain. Edema. left arm is erythematous swollen COMPARISON STUDY: None. FINDINGS: Study is positive for nonocclusive thrombus within the left jugular, subclavian, and axillary veins. All remaining venous structures are unremarkable. IMPRESSION: Acute deep venous thrombosis left jugular, subclavian, and axillary veins. (Anoop Carranza MD) Principal Diagnosis: Malnutrition due to refusal of oral intake (Rayne Rodriguez M.D.) Medication Reconciliation Continued Medications: Bisacodyl (Bisacodyl) 10 Mg Sup 10 MG NV DAILY PRN for if no bm for 4 days Citalopram Hydrobromide (Citalopram Hydrobromide) 10 Mg Tab 5 MG PO DAILY for 30 Days, #15 TAB 3 Refills Ferrous Sulfate (Kp Ferrous Sulfate) 325 Mg Tab 325 MG PO DAILY, TAB 3 Refills Gabapentin (Neurontin) 100 Mg Cap 100 MG PO Q12, CAP Lorazepam (Lorazepam Intensol) 2 Mg/Ml Con 0.25 MG PO BID PRN for Agitation Magnesium Hydroxide (Milk Of Magnesia) 30 Ml Susp 30 ML PO prn PRN for no bm for 3 days, ML Olopatadine Hcl (Patanol 0.1% Oph) 0.1 % Colette 1 DROP OPB BID PRN for Itching, BTL Polyethylene Glycol 3350 (Miralax) 1 Pow Pow 17 GM PO DAILY, GM Risperidone (Risperdal Consta) 37.5 Mg Inj 50 Risperidone (Risperdal Consta) 50 Mg Inj 50 MG IM [id number] Discharge Exam Review of Systems: Constitutional: No fever, No chills Eyes: No worsening of vision, No redness, No discharge ENT: No hearing loss, No nasal symptoms, No sore throat, No tinnitus Respiratory: No cough, No sputum, No wheezing Cardiovascular: No chest pain, No claudication, No palpitations Abdomen: No pain, No nausea, No vomiting Musculoskeletal: No joint pain, No muscle pain Genitourinary - Female: No dysuria, No urinary frequency Neurologic: No memory loss, No numbness/tingling, No vertigo Psychiatric: No depression symptoms, No anxiety Endocrine: No fatigue, No excessive urination Hematologic / Lymphatic: No swollen lymph nodes, No night sweats Integumentary: No new/changing skin lesions, No color change Physical Exam: General Appearance: WD/WN, no apparent distress Eyes: normal inspection, EOMI ENT: hearing grossly normal, pharynx normal Neck: supple, no adenopathy, no JVD Respiratory/Chest: lungs clear, no respiratory distress Cardiovascular: regular rate, rhythm, no gallop, no murmur Abdomen / GI: normal bowel sounds, non tender, soft Extremities: no calf tenderness, no pedal edema, + swelling (left upper extremity) Neurologic/Psychiatric: alert Skin: normal color, warm/dry, no rash Lymphatic: no adenopathy (Anoop Carranza MD) unable to get any history. patient easily distracted. responds with only few words. did ask for her lunch meal. Review of Systems: Constitutional: No fever Physical Exam: General Appearance: + pertinent finding (sitting in bed. no distress) Respiratory/Chest: no respiratory distress Neurologic/Psychiatric: alert, + pertinent finding (unable to hold conversation) Skin: warm/dry (Rayne Rodriguez M.D.) Hospital Course Patient was admitted for refusal to eat and hypotension. BP recovered with IV Bolus fluid administration. Due to refusal to eat, she was found to be nutritionally devoid of Iron, and Vitamin D. These are being orally repleted per her home medications. Patient was found to have an elevated INR and aPTT, without any overt evidence of bleeding. She had a stable anemia with a Hb between 8-9, which remained stable through her hospital admission and likely due nutritional deficiencies. Patient was ultimately refusing treatments and monitoring. It was deemed she did not have capacity to make decisions for self. Decision was made in accordance with her POLST form and discussion with her substitute decision-maker , Silvia Gamez, that she would be made comfort measures. We have made the substitute decision-maker aware of the ongoing risk of bleeding, but the inability to treat this if patient refuses treatment. Patient is noted to have been brought in with 302 form. Due to refusal for medical treatment by patient and decision by substitute caregiver to pursue comfort care, involuntary psychiatric admission was not pursued and 302 form was completed to indicate that patient is stable to return to [facility]. We have not made any changes in her medications. We have advised that she can accept or refuse her medications and food at her own discretion. The patient is being discharged back on comfort care measures only. Total Time Spent: Greater than 30 minutes This includes examination of the patient, discharge planning, medication reconciliation, and communication with other providers. (Anoop Carranza MD) Resident Physician Supervision Note: I was present with Dr. Carranza in bedside. I verified the smith history and physical, reviewed labs and image studies, discussed the case with the resident and agree with the findings and care plan. Total Time Spent: Greater than 30 minutes (40) (Rayne Rodriguez M.D.) Discharge Instructions Please refer to the electronic Patient Visit Report (Discharge Instructions) for additional information. (Anoop Carranza MD) Additional Copies To [facility]; [facility]; [facility]; [facility]
[2016-11-20 15:16] VITALS: BP 120/62; PULSE 88; TEMP 36.3; O2SAT 93
== END 2016-11-20 16:00 | DRG 871 ==
LOC: EDBD 11:44 → C.EDC 11:46 → UNDOADMIN 18:30 → C.2T 18:30 → ENRESERV 18:36 → C.MS2W 11-17 18:59
PROVIDERS: ADMIT Internal Medicine; ATTEND Family Medicine
DX: R57.1 Hypovolemic shock (principal); D65 Disseminated intravascular coagulation [defibrination syndrome]; E43 Unspecified severe protein-calorie malnutrition; F20.0 Paranoid schizophrenia; E87.2 Acidosis; I82.622 Acute embolism and thrombosis of deep veins of left upper extremity; R62.7 Adult failure to thrive; J44.9 Chronic obstructive pulmonary disease, unspecified; I10 Essential (primary) hypertension; I95.9 Hypotension, unspecified; M81.0 Age-related osteoporosis without current pathological fracture; D72.829 Elevated white blood cell count, unspecified; D50.9 Iron deficiency anemia, unspecified; Z51.5 Encounter for palliative care; Z66 Do not resuscitate; Z79.899 Other long term (current) drug therapy; F17.200 Nicotine dependence, unspecified, uncomplicated